=== PATIENT | female | born 1970 | race Caucasian/White ===

== ENCOUNTER 2019-07-16 09:09 | Inpatient (IN) | payer OTHER, SELFPAY ==
[2019-07-14 08:24] VITALS: BMI 40.8
[2019-07-16] VITALS (19 sets, daily range): BP systolic 125–169; BP diastolic 48–99; PULSE 90–107; RESP 8–20; TEMP 36.3–37.3; O2SAT 93–99; BMI 42.4
--- NOTE | 2019-07-16 | DI.RAD.S_ITS ---
PROCEDURE: XR LUMBAR SPINE 2-3V INDICATIONS: L5-S1 TLIF TECHNIQUE: 2 views of the lumbar spine were acquired. COMPARISON: None. FINDINGS: 2 spot fluoroscopic images demonstrating L5-S1 posterior spinal fixation with paraspinal rods and pedicle screws. There is interbody cage graft. Expected intraoperative alignment. Dictated by: Gregory Merino M.D. on 07/16/2019 at 15:33 Approved by: Gregory Merino M.D. on 07/16/2019 at 15:59
[2019-07-16] MEDS: LACTATED RINGERS 1,000 ML 42 ML IV ×2 (10:03→13:33)
--- NOTE | 2019-07-16 10:49 | PM.PREOP ---
Pre-operative Note Interval Note History & Physical reviewed/Exam performed by Physician: Yes Changes to H&P: No
[2019-07-16] MEDS: CLINDAMYCIN 900 MG/50 ML PIGGYBACK 50 MG IV ×2 (11:45→18:58)
[2019-07-16] MEDS: ACETAMINOPHEN IV 1,000 MG/100 ML VIAL 400 MG IV (12:05)
--- NOTE | 2019-07-16 12:19 | SUR.OPER ---
Prone on spine table, head in foam head support, padded chest and pelvic supports, gel pad at knees, lower legs supported by pillows; nipples, genitalia and toes free of pressure, arms secured on foam padded arm boards at <90 degrees abduction. Tape over blanket at thigh secured to table.
[2019-07-16] MEDS: THROMBIN (RECOMBINANT) 5,000 UNIT VIAL 5000 UNIT TOP (12:26)
[2019-07-16] MEDS: VANCOMYCIN 1,000 MG VIAL 1000 MG TOP (12:27)
[2019-07-16] MEDS: BUPIVACAINE 0.5% (PF) 4 ML, MORPHINE-PF 4 MG, BUTORPHANOL 1 MG, fentaNYL 100 MCG INJ (12:27)
[2019-07-16] MEDS: SODIUM CHLORIDE 0.9% 1,000 ML, GENTAMICIN 80 MG IRR (12:27)
--- NOTE | 2019-07-16 15:07 | PM.OP.1 ---
Operative Date/Time/Diagnoses Date of procedure: 07/16/19 Time of procedure: 15:07 Pre-op diagnosis: Lumbar disc herniation with radiculopathy Post-op diagnosis: same Procedure & Clinicians Procedure: L5-S1 TLIF (post/post interbody fusion) with cage L5-S1 screws Iliac crest bone graft aspirate Left L4-5 diskectomy Left L5-S1 diskectomy Use of microscope Placement of epidural catheter Same procedure as scheduled: Yes Indications: [age] year old female with intractable pain from lumbar disc herniations. They had failed conservative management and requested operative intervention. Risks and benefits of surgery were discussed and appropriate consents were obtained. Surgeon: Eugenio Edmondson Director Of Infection Prevention: Cherri Mcgee Anesthesia Type: General Operative Notes Findings: None Closure Type: primary Specimen(s): none sent Prosthetic devices, grafts, tissues, transplants, or devices: NuVasive MAS Reline screws Globus Rise cage Applied: catheter Estimated Blood Loss (mL): 20 Procedure in detail: The patient was brought to the operating room and intubated on the table. A time-out was performed. They were then rolled over to the well-padded Ambrosio table in the prone position. Preoperative antibiotics were given. The back was prepped and draped in the standard sterile fashion. Using fluoroscopy, a 4 cm longitudinal incision was made to the well-marked left of the midline. We used Bovie to come down to and split the lumbodorsal fascia. Using fluoroscopy and monitoring, we then percutaneously placed Jamshidi needles down the pedicles of L5 and S1 on the left side. These were changed out to guidewires and then we tapped and then placed the NuVasive MAS Reline screw shanks. We then opened up the retractors and used Bovie to clear up the posterolateral gutter as well as medially along the lamina to the spinous processes. A bur was used to decorticate the transverse process of L5 and the sacral ala. We brought in the microscope. Using a combination of bur and Kerrison rongeurs, a laminectomy was performed from the left side. We cleared over past the midline. We cleared out the neural foramen. This was exceedingly tight. We had to perform a complete facetectomy to be able to decompress the neural foramen and exposed the disc. Surprisingly, this disc was partially calcified. We then began the TLIF prep. We cleared out the rest of the neural foramen and finished our exposure for the interbody work. The disc was prepped with bipolar and then an annulotomy was performed. We had used an osteotome to break through the outer portion of the disc. We then removed the posterior fragments and the exiting nerve root was finally fully free. We performed a diskectomy using a combination of paddles, gabriella, pituitaries, and curettes. We distracted the disc using a paddle and locked the retractor in an open position. We then filled the disc space with Osteocel bone graft. We then placed the globus Rise cage under fluoroscopy and then filled this in with more bone graft. The distraction on the retractor was released to compress down. This completed the posterior interbody fusion portion of the TLIF at L5-S1. We then moved the retractor up a level to L4-5, still based off the L5 screw. This was opened up and we cleared out medially to expose the lamina. A left-sided hemilaminotomy was performed. We carefully pulled back the ligamentum and expose the dura. The dura and the nerve root were retracted medially until we came down to the extruded disc herniation. This was prepped with bipolar and then we used a scalpel and pituitaries to perform a diskectomy at L4-5. We could then sweep the ball probe back and forth and there was no further pressure on the nerve root. The wound was irrigated. We then placed the screw heads, leticia, and locked down the set screws. A small stab incision was made over the PSIS. We used a Jamshidi needle to aspirate several mL of bone marrow from the pelvis. This was mixed with the remaining Osteocel and combined with all of the locally harvested bone graft and placed in the posterolateral gutter for the posterior fusion of the TLIF at L5-S1. An epidural catheter was then placed in the spinal canal by carefully depressing the dura and advancing it 6 cm cephalad under the remaining lamina without resistance. The muscle fascia was closed. The catheter was then injected with a solution containing 4 mL of 0.5% Marcaine, 1 mg Stadol, 4 mg Duramorph, and 100 mcg of fentanyl. This was injected without resistance and the catheter was pulled. We then went to the opposite side. Again using fluoroscopy, a 3 cm incision was made and Bovie was used to come down to split the fascia. Using neural monitoring and fluoroscopy, Jamshidi needles were advanced down the pedicles of L5 and S1 on the right side. These were switched over guidewires, tapped, and screws placed. We then placed a leticia and locked the set screws on this side. The wound was irrigated. The fascia was closed. Vancomycin powder was placed in the wounds. The superficial and skin were closed. A sterile dressing was placed. The patient was then rolled over extubated and brought to recovery room without complications. Complications: none Post-operative Condition: stable Disposition: PACU Plan for aftercare: Inpatient. Up with therapy.
[2019-07-16] MEDS: ONDANSETRON 4 MG/2 ML INJ IV (15:30)
[2019-07-16] MEDS: HYDROMORPHONE 2 MG INJ 1 MG IV ×2 (15:30→15:38)
[2019-07-16] MEDS: hydrOXYzine 50 MG/ML INJ 25 MG IM (15:56)
--- NOTE | 2019-07-16 16:46 | SUR.PHASEI ---
Pt trasnsferred to room 220 via bed with all belongings. Last vital signs stable and pain at tolerable level; see flowsheet documentation for details. Report given to JOSE Mcleod prior to transfer. Harsha at bedside upon arrival to room 220; handoff assessment completed. JOSE Mcleod to assume care of pt at this time.
[2019-07-16] MEDS: LACTATED RINGERS 1,000 ML 125 ML IV (17:11)
[2019-07-16] MEDS: OXYCODONE IR 5 MG TABLET 10 MG PO (18:32)
[2019-07-16] MEDS: GABAPENTIN 300 MG CAPSULE PO (21:16)
[2019-07-16] MEDS: DOCUSATE 100 MG CAPSULE PO (21:16)
[2019-07-16] MEDS: SENNOSIDES 8.6 MG TABLET 17.2 MG PO (21:16)
[2019-07-16] MEDS: INSULIN GLARGINE 100 UNIT/ML 3ML PEN 40 UNIT SUBCUT (21:16)
[2019-07-16] MEDS: OXYCODONE IR 5 MG TABLET 15 MG PO (21:16)
[2019-07-17 00:35] VITALS: BP 120/54; PULSE 88; RESP 18; TEMP 36.7; O2SAT 96
[2019-07-17] MEDS: LACTATED RINGERS 1,000 ML 125 ML IV (00:44)
[2019-07-17] MEDS: HYDROMORPHONE 1 MG INJ 0.5 MG IV ×4 (00:58→06:39)
--- NOTE | 2019-07-17 02:39 | PC.NURSE ---
Addendum entered by Areli Doll R.N. 07/17/19 04:56: IV dilaudid 0.5mg given at this time. Offered logroll turn, pt stated I know I need to turn, but I'm just not up to it right now Reinforced education regarding importance of turning post op. Reassured pt that pain med preactivity available. Will con't to offer turns and stress importance/reinforce post op instructions. Original Note: Pt reports pain 3/10 when lying of right side at beginning of shift. Offered pain medication per turn, pt denied need for pain medication and pt thought she would be able to tolerate log roll turn to left side. At attempt to turn pt to left side with 2person assist. Pt vocalized pain 10/10. Attempt to turn stopped. Readdressed need for pain medication pre turn, pt agreed to premedication for turning. Repositioned to right side with pillows for support, pt unable to tolerate right side. Pt turned back to left side. Plan to offer premedication with next turn, will turn as pt pain level allows. Pt LLE with baseline (pre op) numbness, tingling. LLE color pink, strong pedal pulse, able to wiggle toes, and lift foot 1inch without resistance.
[2019-07-17] MEDS: CLINDAMYCIN 900 MG/50 ML PIGGYBACK 50 MG IV (03:23)
[2019-07-17 04:30] VITALS: BP 131/67; PULSE 97; RESP 16; TEMP 36.7; O2SAT 95
[2019-07-17] MEDS: diazePAM 5 MG TABLET PO ×4 (05:58→23:31)
[2019-07-17] MEDS: ACETAMINOPHEN 325 MG TABLET 650 MG PO ×3 (06:00→23:18)
[2019-07-17 06:26] LABS: Hematocrit 38.1 % (36-46); Hemoglobin 12.8 g/dL (12.0-16.0)
[2019-07-17] MEDS: TIZANIDINE 4 MG TABLET 6 MG PO ×3 (06:40→21:16)
[2019-07-17 08:00] VITALS: BP 137/61; PULSE 83; RESP 18; TEMP 36.4; O2SAT 96
--- NOTE | 2019-07-17 08:51 | PM.PNPO.1 ---
Subjective Subjective Date Patient Seen: 07/17/19 Time Patient Seen: 08:51 Interval history: Having significant pain across the back, 10. No more leg pain. Exam Vital Signs (past 8 hours): - 07/17/19 04:30 07/17/19 08:00 Temperature 98.1 F 97.5 F L Pulse Rate 97 H 83 Respiratory Rate 16 18 Blood Pressure 131/67 137/61 Pulse Oximetry 95 96 Oxygen Delivery Method Room Air Oxygen Flow Rate 0 Const Orientation: alert and oriented x3 Back/Spine/Pelvis Other: CDI. 5/5 motor both lower extremities except for 4/5 left AT, EHL. Objective Labs Result Diagrams: 07/17/19 05:40 Labs: Laboratory Results - last 24 hr 07/17/19 05:40 Hgb 12.8 Hct 38.1 Assessment & Plan Post-op Postoperative Procedures: Procedures Operation Date: 07/16/19 11:15 Actual Procedures Side Surgeon p L45 discectomy & L45 discectomy & instrumented fusion w/ bone graft Eugenio Edmondson MD Stable after surgery. Leg weakness about the same but no more leg pain. Plan to mobilize today with physical therapy. Anticipate her being here for the next 2-3 days. Quality VTE Deep Vein Thrombosis/Pulmonary Embolism Present on Admission: No
--- NOTE | 2019-07-17 08:57 | PM.PNPO.1 ---
Subjective Subjective Date Patient Seen: 07/17/19 Time Patient Seen: 08:57 Interval history: She is doing great. Minimal discomfort in the low back. She was nauseated overnight but now is eating breakfast. Exam Vital Signs (past 8 hours): - 07/17/19 04:30 07/17/19 08:00 Temperature 98.1 F 97.5 F L Pulse Rate 97 H 83 Respiratory Rate 16 18 Blood Pressure 131/67 137/61 Pulse Oximetry 95 96 Oxygen Delivery Method Room Air Oxygen Flow Rate 0 Const Orientation: alert and oriented x3 Back/Spine/Pelvis Other: CDI. 5/5 motor both lower extremities Objective Labs Result Diagrams: 07/17/19 05:40 Labs: Laboratory Results - last 24 hr 07/17/19 05:40 Hgb 12.8 Hct 38.1 Assessment & Plan Post-op Postoperative Procedures: Procedures Operation Date: 07/16/19 11:15 Actual Procedures Side Surgeon p L45 discectomy & L45 discectomy & instrumented fusion w/ bone graft Eugenio Edmondson MD She is doing great. Mobilize with physical therapy. Anticipate discharge probably tomorrow. Quality VTE Deep Vein Thrombosis/Pulmonary Embolism Present on Admission: No
[2019-07-17] MEDS: GABAPENTIN 300 MG CAPSULE PO ×3 (09:14→20:24)
[2019-07-17] MEDS: OXYCODONE IR 5 MG TABLET 15 MG PO ×5 (09:14→23:17)
[2019-07-17] MEDS: DOCUSATE 100 MG CAPSULE PO ×2 (09:14→20:25)
[2019-07-17] MEDS: LISINOPRIL 20 MG TABLET PO (09:14)
[2019-07-17] MEDS: buPROPion 100 MG TABLET PO ×2 (09:20→20:25)
--- NOTE | 2019-07-17 10:44 | PT.IIE ---
Current Diagnoses Intervertebral disc disorders with radiculopathy, lumbar region (07/16/19) Strain of muscle, fascia and tendon of lower back, initial encounter (07/16/19) Surgery Performed Operation Date: 07/16/19 11:15 Actual Procedures p L45 discectomy & L45 discectomy & instrumented fusion w/ bone graft - Eugenio Edmondson MD Surgical History (Last Updated 07/14/19 @ 11:02 by Afsaneh Campbell RN) History of section (Acute ~1996) History of partial hysterectomy (Acute ~1998) History of surgery (Acute ~2005) Status post epidural steroid injection (Acute) Medical History (Last Updated 07/14/19 @ 11:58 by Afsaneh Campbell RN) Asthma (Acute) Constipation (Acute) Depression (Acute) Diabetes (Acute) Herniated nucleus pulposus, L4-5 left (Acute) HTN (hypertension) (Acute) Hx of migraine headaches (Acute) Lumbar foraminal stenosis (Acute) Lumbar radiculopathy (Acute) Physical Therapy Inpatient Evaluation/Re-Eval M1 PT/OT-IP Prior Functional Status Start: 07/17/19 14:21 Freq: NEEDED Status: Active Protocol: Document 07/17/19 10:44 AB (Rec: 07/17/19 14:43 AB [id number]) Medical Review Prior Functional Status Medical History Reviewed Yes Diet/Fluid Consistency Regular Communication able to make needs known Mobility and Gait pt stated that she is independent with all mobilities and ambulation using a quad cane Social History Household Members spouse Living Arrangements House Number of Floors (Floors) One Floor Number of Stairs To Enter/Railing? 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 PT-IP Current Condition Start: 07/17/19 14:21 Freq: NEEDED Status: Active Protocol: Document 07/17/19 10:44 AB (Rec: 07/17/19 14:43 AB [id number]) Physical Therapy Current Condition Current Condition Evaluation Date 10/19/19 Treatment Diagnosis s/p L5S1 TLIF; L4-5 discectomy ; difficulty in walking Onset Date 07/16/19 Precautions Lumbar Precautions Log Roll,No Twisting,Limit Bending,Lifting Restriction of 10 lbs,Gait Belt above Incisional Area M3 PT-IP Subjective Start: 07/17/19 14:21 Freq: NEEDED Status: Active Protocol: Document 07/17/19 10:44 AB (Rec: 07/17/19 14:43 AB [id number]) Subjective Physical Therapy Visit Type Type Initial Evaluation Visit Start Time 10:44 Visit Stop Time 10:54 Total Visit Minutes 10 Number of VENEER DRIER FEEDER Visits 0 Physical Therapy Visit Comments Patient Comments pt agreeable to do PT Therapy Pain Assessment Pain When Pain Assessed At Rest Pain Present Pain Present Pain Reported Location Low back, lt hip and leg Scale Used increases with mobiltiy Pain Behaviors Calling Out,Crying Pain Management Techniques Apply Cold,Modification of Treatment,Re-positioning, Timing of Activity with Medications M4 PT-IP Mobility and Gait Start: 07/17/19 14:21 Freq: NEEDED Status: Active Protocol: Document 07/17/19 10:44 AB (Rec: 07/17/19 14:43 AB [id number]) PT-Bed Mobility Assessment Sit to Supine Sit to Supine Maximum Assistance,2 Person Assistance Scooting Scooting to Edge of Bed Maximum Assistance Scooting Up and Down in Bed Maximum Assistance PT-Transfer Assessment Sit to and From Stand Sit to and from Stand Maximum Assistance,2 Person Assistance,Use of Upper Extremities Equipment Transfer Assistive Device Gait Belt,Front Wheeled Walker Orthotic/Prosthetic Devices or Brace: No Transfers Transfer Destination Bed Transfer Technique Stand Step Pivot Transfer Ability Level of Assist Moderate Assistance,Maximum Assistance,1 Person Assistance ,Use of Upper Extremities Comments Mobility Comments attempted sit to stand from the chair and required 2 attempts and unable despite max A provided. completed again with max A x 2 and max cues. pt c/o increase pain. screaming with pain and crying . instructed to take deep breaths. attempted to ambulate and only was able to take steps towards the bed ~ 5 ft mod to max A and cues. required max A for controlled descent to the bed. pt stated that she cannot tolerate lying on her back and prefers to be on her back. pt completed sit to side lying max A x 2 and max cues. positioned in bed. call light and table placed within reach . left pt with spouse in room. Gait Assessment Gait Gait Assistance Required: Moderate Assistance,Maximum Assistance Distance (Feet) 5 Able to Maintain Weight Bearing Status Yes During Gait Assistive Devices Assistive Device Gait Belt,Front Wheeled Walker Orthotic/Prosthetic Devices or Brace: No Gait Deviations General Gait Pattern Antalgic,Decreased Stride Length,Decreased Feet Clearance Factors Limiting Gait Function Factors Limiting Gait Function Decreased Activity Tolerance, Decreased Strength,Pain,Poor Balance Comments Gait Comments pls refer to mobility section for details PT-Balance Assessment Sitting Balance and Reactions Static Sitting Balance Ability Good Dynamic Sitting Balance Ability Good Standing Balance and Reactions Static Standing Balance Ability Fair Dynamic Standing Balance Ability Poor Device Used FWW M5 PT-IP Objective Assessments Start: 07/17/19 14:21 Freq: NEEDED Status: Active Protocol: Document 07/17/19 10:44 AB (Rec: 07/17/19 14:43 AB [id number]) Orientation Orientation/Cognition Level of Alertness Alert Orientation Name,Age,Birthday,Place, Situation Language Function Ability No Deficits Noted Safety Awareness Understands Safety Issues Memory Description No Deficits Noted Gross Range of Motion Lower Extremity ROM Assessment Within Functional Limits Strength Lower Extremity Strength Assessment Bilaterally Impaired Hip 3+/5 Knee 4-/5 Coordination Assessment Gross Coordination Gross Coordination WNL Sensation Assessment Sensation Gross Sensation Left LE Impaired Sensation Description Numbness,Tingling Muscle Tone Muscle Tone WNL Yes M6 PT-IP Treatment Start: 07/17/19 14:21 Freq: NEEDED Status: Active Protocol: Document 07/17/19 10:44 AB (Rec: 07/17/19 14:43 AB [id number]) Physical Therapy Treatment Education Education Provided Precautions,Post-Op Packet, Safety M7 PT-IP Assessment and Plan Start: 07/17/19 14:21 Freq: NEEDED Status: Active Protocol: Document 07/17/19 10:44 AB (Rec: 07/17/19 14:43 AB [id number]) PT Summary Assessment and Plan Potential Rehabilitation Potential Good Status of Condition at Evaluation Evolving Summary Impairments Pain,ROM,Strength,Balance, Coordination,Sensation,Tone, Cognition,Bed Mobility, Transfers,Gait,Activity Tolerance Assessment Summary pt requiring max A x2 and max cues. unable to tolerate much activity due to pain. d/c plan depending on progress. will continue to monitor but at this time pt may need SNF rehab. Goals Bed Mobility Goal Standby Assistance Transfer Goal Standby Assistance,Front Wheeled Walker Gait Goal Standby Assistance,Front Wheel Walker Gait Distance 200 Other Goals up/down 12 step with 1 rail CGA Days to Meet Goals 10 Frequency of Treatment Frequency Of Treatment Twice a Day Treatment Plan Physical Therapy Treatment Plan Bed Mobility Training,Transfer Training,Gait Training, Therapeutic Exercise,Balance Retraining,Post Op Education, Discharge Planning,Hot or Cold Pack,Neuromuscular Re-ed, Coordination Retraining,Manual Therapy Recommendations To Nursing Amount of Assist Needed 2 Person Assist Discharge Recommendations PT Discharge Recommendations Home with 21/04 Assist,Home Health,SNF Rehab
--- NOTE | 2019-07-17 10:53 | PC.NURSE ---
Addendum entered by Elina Jay R.N. 07/17/19 14:05: Pt yelling and crying in pain, refusing to move on her back to lay on her r.side. Given Valium and new Aubree bed put into patients room. She is now doing better. Pt having difficulty with PT. She does feel better when sitting at side of bed and standing and would like to do this again tonight. Will pass on to karin michael RN. Original Note: Pts pain 5/10. Given 15mg of oxycodone and somewhat helpful. Pt working with physical therapy and was standing with gait belt a few minutes ago when giving pt her tizanadine. Dressing to lower back is cdi, Pt is having difficulty moving side to side. She is favoring her back quite a bit. Explained to pt that she is going to have pain, but pain medication will help decrease discomfort. at bedside. Patient ate some bites at breakfast.
--- NOTE | 2019-07-17 11:15 | OT.IP.EVAL ---
Current Diagnoses Intervertebral disc disorders with radiculopathy, lumbar region (07/16/19) Strain of muscle, fascia and tendon of lower back, initial encounter (07/16/19) Surgery Performed Operation Date: 07/16/19 11:15 Actual Procedures p L45 discectomy & L45 discectomy & instrumented fusion w/ bone graft - Eugenio Edmondson MD Past Medical History (Last Updated 07/14/19 @ 11:58 by Afsaneh Campbell RN) Asthma (Acute) Constipation (Acute) Depression (Acute) Diabetes (Acute) Herniated nucleus pulposus, L4-5 left (Acute) HTN (hypertension) (Acute) Hx of migraine headaches (Acute) Lumbar foraminal stenosis (Acute) Lumbar radiculopathy (Acute) Surgical History (Last Updated 07/14/19 @ 11:02 by Afsaneh Campbell RN) History of section (Acute ~1996) History of partial hysterectomy (Acute ~1998) History of surgery (Acute ~2005) Status post epidural steroid injection (Acute) Occupational Therapy Inpatient Evaluation/Re-Eval M1 PT/OT-IP Prior Functional Status Start: 07/17/19 14:21 Freq: NEEDED Status: Active Protocol: Document 07/17/19 16:10 CGR (Rec: 07/17/19 16:35 CGR [email or web address]) Medical Review Prior Functional Status Medical History Reviewed Yes Diet/Fluid Consistency Regular Communication able to make needs known Mobility and Gait pt stated that she is independent with all mobilities and ambulation using a quad cane Activities of Daily Living and IADL's Pt was IND in most ADLs but needed assist with socks and shoes. Pt's assists with cooking as needed. Social History Household Members spouse Living Arrangements House Number of Floors (Floors) One Floor Number of Stairs To Enter/Railing? 10 steps to enter with B railings Home Environment High Toilet,Tub/Shower Home Equipment Quad Cane,Shower Seat without Backrest,Hand Held Shower,Grab Bars In Shower Employment Status Unemployed Additional Social History Comment Pt is not currently working M2 OT-IP Current Condition Start: 07/17/19 16:10 Freq: Status: Active Protocol: Document 07/17/19 16:10 CGR (Rec: 07/17/19 16:35 CGR [email or web address]) Occupational Therapy Current Condition Current Condition Evaluation Date 07/17/19 Treatment Diagnosis L4-5 deisectomy and fusion. Diagnosis Onset Date 07/16/19 Post Operative Precautions Lumbar Precautions Log Roll,No Twisting,Limit Bending,Lifting Restriction of 10 lbs,Gait Belt above Incisional Area M3 OT- IP Subjective and Pain Start: 07/17/19 16:10 Freq: Status: Active Protocol: Document 07/17/19 16:10 CGR (Rec: 07/17/19 16:35 CGR [email or web address]) OT- Subjective Occupational Therapy Visit Type Type Initial Evaluation Visit Start Time 09:50 Visit Stop Time 11:15 Total Visit Minutes 85 Occupational Therapy Visit Comments Patient Comments I will probably yell. OT Pain Assessment Pain When Pain Assessed At Rest Pain Present Pain Present Pain Reported Location Low back, lt hip and leg Intensity 4 Scale Used Numeric (1 - 10) Management Techniques Distraction,Re-positioning M4 OT- IP ADL's Start: 07/17/19 16:10 Freq: Status: Active Protocol: Document 07/17/19 16:10 CGR (Rec: 07/17/19 16:35 CGR [email or web address]) OT FSH-Vtev-Mundttw General Evaluation Self-Feeding Ability Independent OT ADL-Grooming General Evaluation Grooming Ability Standby Assistance Areas Needing Assistance Retrieving/Set-up of Grooming Items,Face Washing Comments OT Grooming Comments seated in chair at sink OT ADL-Oral Care General Eval Oral Care Ability Standby Assistance Areas of Assistance Brushing Teeth Comments Oral Care Comments seated in chair at sink OT ADL-Dressing Comments OT Dressing Comments Pt states she knows how to use a sock aide. Educated pt on use of the cell operation supervisor for donning LB dressing. OT ADL-Toileting Comments OT Toileting Comments Pt with kiera duarte need for BM OT ADL-Bathing Comments OT Bathing Comments Not performed on this date. M5 OT- IP IADL's Start: 07/17/19 16:10 Freq: Status: Active Protocol: Document 07/17/19 16:10 CGR (Rec: 07/17/19 16:35 CGR [email or web address]) OT-Instrumental Activities of Daily Living Deficits IADL Deficits Identified Deficits Home Safety Awareness Awareness of Need for Assistance at Home Good Awareness Ability to Problem Solve Emergency Able to Problem Solve Situations Home Safety Comments Pt appears to have a supportive hsuband who will help her upon discharge. plans to be home for 10-17 days to help. 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 M6 OT- IP Functional Cognition Start: 07/17/19 16:10 Freq: Status: Active Protocol: Document 07/17/19 16:10 CGR (Rec: 07/17/19 16:35 CGR [email or web address]) Cognitive Factors Limiting Selfcare Function Cognitive Ability Level of Alertness Alert Patient Orientation Name,Age,Birthday,Month,Date, Year,Day of Week,Place, Situation Attention Span Ability Capable of Focused Attention, Capable of Sustained Attention Ability to Follow Commands Able to Follow One Step Commands,Able to Follow Multi- Step Commands Memory Description No Deficits Noted Safety Awareness No Deficits Noted Problem Solving Ability No deficits Noted Executive Function Ability No Deficits Noted Abstract Thinking Ability No Deficits Noted OT- Vision and Hearing OT- Hearing Assessment OT- Hearing Assessment WFL OT- Vision Assessment Visual Acuity WFL,Glasses For Reading Visual Attentiveness WFL Occular Pursuits WFL Visual Convergence WFL Visual Pagan WFL M7 OT- IP Mobility and Balance Start: 07/17/19 16:10 Freq: Status: Active Protocol: Document 07/17/19 16:10 CGR (Rec: 07/17/19 16:35 CGR [email or web address]) OT- Bed Mobility Assessment Supine to Sit Supine to Sit Assist Minimal Assistance Scooting Scooting to Edge of Bed Moderate Assistance OT-Transfer Assessment Sit to and From Stand Sit to and from Stand Minimal Assistance Transfers Transfer Ability Minimal Assistance Technique Transfer Destination Bed,Chair Transfer Technique Stand Step Pivot Devices Transfer Assistive Devices Gait Belt,Front Wheeled Walker Comments Mobility Comments Pt needed help with scooting to the edge of the bed and to the edge of the chair but was able to scoot back in the chair and transfer with ~5 steps to the chair with min a. Per P.T., pt had significant decline in ability with increased pain later in the AM . OT- Balance Assessment Sitting Balance and Reactions Static Sitting Balance Ability Good Dynamic Sitting Balance Ability Fair M8 OT- IP Objective Assessments Start: 07/17/19 16:10 Freq: Status: Active Protocol: Document 07/17/19 16:10 CGR (Rec: 07/17/19 16:35 CGR [email or web address]) OT Gross Range of Motion Upper Extremity Range of Motion Assessment Within Functional Limits OT Strength Upper Extremity Strength Assessment Within Functional Limits Comments Strength Comments grossly 4/5 throguhout OT- Coordination Assessment Upper Extremity Finger to Nose Test Within Functional Limits Finger Tapping Test Within Functional Limits OT-Muscle Tone Assessment Muscle Tone WNL Yes OT Sensation Assessment Edema Edema Absent M9 OT- IP Assessment and Plan Start: 07/17/19 16:10 Freq: Status: Active Protocol: Document 07/17/19 16:10 CGR (Rec: 07/17/19 16:35 CGR [email or web address]) OT Summary Assessment and Plan Potential Rehabilitation Potential Good Analytic Complexity at Evaluation Low Summary OT Impairments Pain,Balance,Functional Cognition,Functional Mobility, Grooming,Dressing,Toileting, Bathing,Toilet Transfers, Shower Transfers Progress Towards Goals Progressing Toward Goals Assessment Summary Pt presents as a low complexity evaluation. Pt performed well with joyce for most mobility and mod a for scooting but per P.T. had significant difficulty with returning to bed later in the AM d/t increased pain. Pt will continue to benefit from OT services. Recommendation to d/ c home based off this assessment. If pt continues to have significant difficulty with increased pain she may need SNF. Goals Grooming Goal Independent Dressing Goal Independent Toileting Goal Independent Bathing Goal Independent Toilet Transfer Goal Independent Shower Transfer Goal Independent Frequency of Treatment Frequency Of Treatment Once a Day Treatment Plan OT Treatment Plan ADL Training,Functional Mobility,Patient/Family Education,Discharge Planning Discharge Recommendations OT Discharge Recommendations Home with Assistance Home Equipment Needs walker
[2019-07-17 12:00] VITALS: BP 128/66; PULSE 83; RESP 18; TEMP 36.6; O2SAT 99
--- NOTE | 2019-07-17 13:35 | PT.IPTN ---
Current Diagnoses Intervertebral disc disorders with radiculopathy, lumbar region (07/16/19) Strain of muscle, fascia and tendon of lower back, initial encounter (07/16/19) Surgery Performed Operation Date: 07/16/19 11:15 Actual Procedures p L45 discectomy & L45 discectomy & instrumented fusion w/ bone graft - Eugenio Edmondson MD Physical Therapy Treatment Note M2 PT-IP Current Condition Start: 07/17/19 14:21 Freq: NEEDED Status: Active Protocol: Document 07/17/19 10:44 AB (Rec: 07/17/19 14:43 AB [id number]) Physical Therapy Current Condition Current Condition Evaluation Date 07/17/19 Treatment Diagnosis s/p L5S1 TLIF; L4-5 discectomy ; difficulty in walking Onset Date 07/16/19 Precautions Lumbar Precautions Log Roll,No Twisting,Limit Bending,Lifting Restriction of 10 lbs,Gait Belt above Incisional Area M3 PT-IP Subjective Start: 07/17/19 14:21 Freq: NEEDED Status: Active Protocol: Document 07/17/19 13:35 AB (Rec: 07/17/19 14:56 AB [id number]) Subjective Physical Therapy Visit Type Type Treatment Note Visit Start Time 13:35 Visit Stop Time 14:03 Total Visit Minutes 28 Number of FURNITURE REPAIR TECHNICIAN Visits 0 Physical Therapy Visit Comments Patient Comments requested to lay down on her other side Therapy Pain Assessment Pain When Pain Assessed At Rest Pain Present Pain Present Pain Reported Location Low back, lt hip and leg Scale Used increase pain with mobiltiy Pain Behaviors Calling Out,Crying Pain Management Techniques Re-positioning,Timing of Activity with Medications M4 PT-IP Mobility and Gait Start: 07/17/19 14:21 Freq: NEEDED Status: Active Protocol: Document 07/17/19 13:35 AB (Rec: 07/17/19 14:56 AB [id number]) PT-Bed Mobility Assessment Supine to Sit Supine to Sit Moderate Assistance Sit to Supine Sit to Supine Maximum Assistance,1 Person Assistance,2 Person Assistance Scooting Scooting to Edge of Bed Maximum Assistance PT-Transfer Assessment Sit to and From Stand Sit to and from Stand Maximum Assistance,2 Person Assistance,Use of Upper Extremities Equipment Transfer Assistive Device Gait Belt,Front Wheeled Walker Orthotic/Prosthetic Devices or Brace: No Transfers Transfer Destination Bed,Chair Transfer Technique Stand Step Pivot Transfer Ability Level of Assist Moderate Assistance,Maximum Assistance,1 Person Assistance ,Use of Upper Extremities Comments Mobility Comments nurse asked for assistance to change pt's position in bed. pt laying on her L side and wants to lay down on her R. attempted log roll and side turn to the R but pt stated that she cannot lie down on her back but agreed to try. attempted log rolling to her back and pt screaming with pain and crying. unable to complete the rolling. assisted pt to sit on EOB mod A and cues. pt was able to sit on EOB SBA. completed sit to stand max A and cues and took ~ 5 steps to transfer on to the chair using FWW mod to max A and cues. required max assist for controlled descent to the chair. informed nurse regarding bed change and agreed. nurse was able to obtain another bed for pt. position pt next to R side of the bed. completed sit to stand from the chair mod A x 2 and max cues. stand step pivot using FWW mod to max A and cues to the bed. completed sit to supine max A x 2 and max cues. positioned pt on the bed. call light and table placed within reach. Gait Assessment Gait Gait Assistance Required: Moderate Assistance,Maximum Assistance,1 Person Assist Distance (Feet) 2 Assistive Devices Assistive Device Gait Belt,Front Wheeled Walker Orthotic/Prosthetic Devices or Brace: No Gait Deviations General Gait Pattern Antalgic,Decreased Stride Length,Decreased Feet Clearance,Step-to Gait Factors Limiting Gait Function Factors Limiting Gait Function Decreased Activity Tolerance, Decreased Sensation,Decreased Strength,Limited Range of Motion,Pain,Poor Balance Comments Gait Comments able to take steps during transfers M5 PT-IP Objective Assessments Start: 07/17/19 14:21 Freq: NEEDED Status: Active Protocol: Document 07/17/19 10:44 AB (Rec: 07/17/19 14:43 AB [id number]) Orientation Orientation/Cognition Level of Alertness Alert Orientation Name,Age,Birthday,Place, Situation Language Function Ability No Deficits Noted Safety Awareness Understands Safety Issues Memory Description No Deficits Noted Gross Range of Motion Lower Extremity ROM Assessment Within Functional Limits Strength Lower Extremity Strength Assessment Bilaterally Impaired Hip 3+/5 Knee 4-/5 Coordination Assessment Gross Coordination Gross Coordination WNL Sensation Assessment Sensation Gross Sensation Left LE Impaired Sensation Description Numbness,Tingling Muscle Tone Muscle Tone WNL Yes M6 PT-IP Treatment Start: 07/17/19 14:21 Freq: NEEDED Status: Active Protocol: Document 07/17/19 13:35 AB (Rec: 07/17/19 14:56 AB [id number]) Physical Therapy Treatment Education Education Provided Precautions,Safety M7 PT-IP Assessment and Plan Start: 07/17/19 14:21 Freq: NEEDED Status: Active Protocol: Document 07/17/19 13:35 AB (Rec: 07/17/19 14:56 AB [id number]) PT Summary Assessment and Plan Potential Rehabilitation Potential Fair Summary Impairments Pain,ROM,Strength,Balance, Coordination,Sensation,Tone, Cognition,Bed Mobility, Transfers,Gait,Activity Tolerance Progress Towards Goals Slow Progress due to Pain Assessment Summary pt with c/o increase pain during mobility and unable to tolerate much activity. pt currently requiring 2 person assist and will need SNF rehab at this time. will continue to assess progress. Goals Bed Mobility Goal Standby Assistance Transfer Goal Standby Assistance,Front Wheeled Walker Gait Goal Standby Assistance,Front Wheel Walker Gait Distance 200 Other Goals up/down 12 step with 1 rail CGA Days to Meet Goals 10 Frequency of Treatment Frequency Of Treatment Twice a Day Treatment Plan Physical Therapy Treatment Plan Bed Mobility Training,Transfer Training,Gait Training, Therapeutic Exercise,Balance Retraining,Post Op Education, Discharge Planning,Hot or Cold Pack,Neuromuscular Re-ed, Coordination Retraining,Manual Therapy Recommendations To Nursing Amount of Assist Needed 2 Person Assist Discharge Recommendations PT Discharge Recommendations Home with 21/04 Assist,Home Health,SNF Rehab
--- NOTE | 2019-07-17 14:45 | CM.DANOTE ---
Patient is a 48 year old female who was admitted on 07/16/19 for Back Surgery. Pt has TRAN for insurance and her PCP is Dr. Penny Asif. EMR was reviewed. Per Ortho MD, pt seemed to tolerate procedure well and likely will need another 2-3 days. Per PT, pt currently 2PA with lots of pain and not currently able to tolerate much but PT hopeful that pt will progress enough here to be able to d/c home as she is fairly young and pt would like to avoid SNF if possible. SW met bedside with pt and explained role and pt clearly uncomfortable and recently given pain medication and having difficulty staying awake but able to confirm that she lives in [place] with her and pt works and is independent with ADL's at baseline. Pt denies any hx of HH or SNF and states that her has 9 days off work and available for assist but pt has been wondering about possible HH to help with therapy and showers once he is back at work. SW briefly discussed HH services and frequency and typically only 1-2 days a week and pt acknowledges understanding and feels HH likely needed at d/c pending her progress. Pt's spouse had to go back home to take care of their pets but plans to be bedside again later. Plan: SW to follow closely to see how pt progresses with PT/OT to determine if she will be safe for d/c home and if HH needed. WOODROW Nichols Discharge Planning/Care Management CM Discharge Assessment Start: 07/17/19 14:43 Freq: Status: Active Protocol: Document 07/17/19 14:43 BF (Rec: 07/17/19 14:45 BF [id number]) Discharge Planning Assessment Assigned Die Designer WOODROW Moreno Advance Directives? Yes History Provided By Patient,Medical Record Has Patient been admitted in last 30 No days? Prior Living Arrangements House Household Members spouse Type of transporation used prior to Drives own vehicle admit Independent with ADL's Yes Is patient alert and oriented? Yes Patient/Family Preference Home with Home Health Comment Pending pt's progress with PT Barriers to Discharge No Discharge Plan Home Community Services Physical Therapy Transportation Arrangement Spouse off work the next 9 days and can provide transport Additional Comment Waiting for further PT to determine d/c needs Whiteboard Updated in Patient Room with Yes name and ext. # of Die Designer Review Status In Process Please Provide Date Initial DC 07/17/19 Assessment Was Performed Next Review Type Continued Stay Review Pre-Anesthesia Assessment Start: 07/14/19 08:24 Freq: Status: Complete Protocol: Document 07/14/19 08:24 CAB (Rec: 07/14/19 08:40 CAB [id number]) Pre-Anesthesia Assessment Patient Information Reviewed Via Chart Review Diagnostic Results BMP/CMP,CBC,EKG,Urinalysis Comment Outside labs/EKG scanned to record Seen Specialist in Last 12 Months Yes Specialist Seen Orthopedist,Other Comment Pain Management Primary Language Danish Machine Heel Builder Required No Height 167.64 cm Weight 114.759 kg Body Mass Index (BMI) 40.8 Barriers to Learning None Anesthesia Review Requested No alcohol intake never Smoking Status Former smoker Tobacco type cigarettes how long ago did patient quit smoking Quit age 36, smoked on & off x 15 years Substance Use Type does not use Pain Present Pain Reported Musculoskeletal Symptoms Abnormal Gait,Back Pain, Difficulty Walking,Joint Swelling,Numbness,Radiating Pain into Limb History of Falling (Recent or History of Yes ) Patient is completely paralyzed or No completely immobile Prosthesis or Orthotic Device Cane Mental Status Oriented to own ability Is patient on oxygen? No Does patient have JEAN BAPTISTE/SOB No Hx Sleep Apnea No Currently Taking a Beta Rajwinder No Can You Climb a Flight of Stairs Without No SOB Hx Chest Pain No Hx SOB No Hx Syncope or Dizziness Yes Anti-Coagulant Therapy No Has a Disc Ruler Operator No Cardiac Testing No Hx Pacemaker/ICD No Pacemaker Rep Required? No Cardiac Clearance Received Not Applicable Urinary Catheter Present No Hx Urinary Self Catheterization No Diabetes Yes HgbA1C 8.3 Date 07/08/19 Patient No Lactating No Marital Status Lives With spouse Patient Discharge Plan Description Return Home
[2019-07-17] MEDS: hydrOXYzine pamoate 25 MG CAPSULE PO ×2 (16:30→21:16)
[2019-07-17 16:31] VITALS: BP 135/67; PULSE 93; RESP 17; TEMP 37; O2SAT 100
[2019-07-17] MEDS: SENNOSIDES 8.6 MG TABLET 17.2 MG PO (20:23)
[2019-07-17] MEDS: INSULIN GLARGINE 100 UNIT/ML 3ML PEN 40 UNIT SUBCUT (20:25)
[2019-07-17 20:35] VITALS: BP 144/65; PULSE 92; RESP 18; TEMP 37.4; O2SAT 99
[2019-07-18] VITALS (8 sets, daily range): BP systolic 85–148; BP diastolic 46–76; PULSE 87–113; RESP 16–22; TEMP 36.6–38.2; O2SAT 95–100
--- NOTE | 2019-07-18 00:37 | PC.NURSE ---
shift summary- Pt rates pain 8-9/10 throughout shift, @ end of shift up in chair, yelling out, crying, cursing. 2+PA FWW gait belt back to bed. Earlier pt refuses to turn to left side or on back, spent sll of shift on right side, until up to chair. Ice pack leaked which is why up to chair, changed bed and gown. Pt started screaming at this point and took 35min to put in bed. Island drsg to low back CDI, RFA SL, Walker in place and draining clear yellow urine. 99-100% RA, LSA clear, pt tachy x2 with HR 93-92. Call light in reach.
[2019-07-18] MEDS: SODIUM CHLORIDE 0.9% 1,000 ML 1000 ML IV (00:54)
--- NOTE | 2019-07-18 00:58 | PC.NURSE ---
Addendum entered by Areli Doll R.N. 07/18/19 06:33: Pt cursing at staff when offering position changes and pain/spasm medication. Pt stated call light was not in reach. Call light at pt side, and in reach. Pt stated she would like to talk to management. Will contact coding team lead. Pt offered assistance throughout night. Pain medication given per order. Monitored for safety. Pt remained safe overnight. Addendum entered by Areli Doll R.N. 07/18/19 02:38: Pt took bilat foot SCDs off. I can't keep them on. Reinforced education regarding risk for blood clots post op and purpose of SCDs. Pt stated I'm too hot. RN removed sheet and offered ice pack. Pt declined and con't to refuse SCDs. Will offer reapplication of SCDs. Addendum entered by Areli Doll R.N. 07/18/19 02:13: IVF bolus completed. BP 117/57, MAP 80, HR 96. Pt reporting pain 8/10, moaning out loudly. Balancing effective pain control while managing hypotension. Original Note: Pt hypotensive at 0000. RN rechecked BP in both arms at 0026, BP 85/46, MAP [address] Saul notified. New order for NS 1liter over one hour x 1 now. Will recheck BP at completion of bolus. Pt sleeping, easily arousable. RR 18 o2 sat 95% on rom air. Stated pain 10/10 at 2330 with legs spasms. Oxycodone 15mg given at that time and medication for spasms. Will monitor for response to IVF bolus.
[2019-07-18] MEDS: SODIUM CHLORIDE 0.9% FLUSH 10 ML IV ×3 (02:04→20:43)
[2019-07-18] MEDS: OXYCODONE IR 5 MG TABLET 15 MG PO ×3 (02:18→10:41)
[2019-07-18] MEDS: hydrOXYzine pamoate 25 MG CAPSULE PO ×2 (04:13→19:43)
[2019-07-18] MEDS: ACETAMINOPHEN 325 MG TABLET 650 MG PO ×2 (05:38→17:31)
[2019-07-18] MEDS: diazePAM 5 MG TABLET PO ×3 (06:30→19:42)
--- NOTE | 2019-07-18 06:42 | PC.NURSE ---
SLP TEACHER note: Areli GARCIA asked me to help turn patient. Patient didn't want to turn on her back to get on her right side. Patient wanted to stand up. Patient didn't want her (Areli) to help. Patient told me to lift her head with the bed. I did as I was told. It's too high! she yelled. I lowered the head of the bed. Patient waited for 3 minutes. Staff stood at bedside patiently waiting for instruction. After a few minutes I asked what can I do to help her feel better? Patient said Fucking kill me. I let a beat pass and told her well we can't do that. How can I help get you in a better position? Patient let minutes pass. Just go. Since all I do is cuss at you people. Let me go. Patient reached for her phone, handed her- her cell phone. Asked patient if she wanted the big bright light on or off. Patient didn't respond. Turned off the big bright light. Bed rails up for patient safety, bed alarm on, door open a crack for safety. Alerted JOSE Singleton about the event.
--- NOTE | 2019-07-18 09:11 | PM.PNPO.1 ---
Subjective Subjective Date Patient Seen: 07/18/19 Time Patient Seen: 09:11 Interval history: Rough night with pain control. The oxycodone just does not seem to be working well enough for her. All back pain, no leg symptoms. Exam Vital Signs (past 8 hours): - 07/18/19 03:13 Temperature 100.2 F H Pulse Rate 98 H Respiratory Rate 16 Blood Pressure 116/63 Oxygen Delivery Method Room Air Oxygen Flow Rate 0 Const Orientation: alert and oriented x3 Back/Spine/Pelvis Other: CDI. 5/5 motor both lower extremities except for 4/5 left AT/EHL, improved compared to yesterday and preop Objective Labs Result Diagrams: 07/17/19 05:40 Assessment & Plan Post-op Postoperative Procedures: Procedures Operation Date: 07/16/19 11:15 Actual Procedures Side Surgeon p L45 discectomy & L45 discectomy & instrumented fusion w/ bone graft Eugenio Edmondson MD Of issues with pain control. We are going to try changing her medications. Continue to mobilize today. Anticipate discharge tomorrow. Quality VTE Deep Vein Thrombosis/Pulmonary Embolism Present on Admission: No
[2019-07-18] MEDS: DOCUSATE 100 MG CAPSULE PO ×2 (09:40→20:41)
[2019-07-18] MEDS: HYDROMORPHONE 2 MG TABLET 4 MG PO (09:40)
[2019-07-18] MEDS: buPROPion 100 MG TABLET PO (09:42)
--- NOTE | 2019-07-18 11:20 | PT.IPTN ---
Current Diagnoses Intervertebral disc disorders with radiculopathy, lumbar region (07/16/19) Strain of muscle, fascia and tendon of lower back, initial encounter (07/16/19) Surgery Performed Operation Date: 07/16/19 11:15 Actual Procedures p L45 discectomy & L45 discectomy & instrumented fusion w/ bone graft - Eugenio Edmondson MD Physical Therapy Treatment Note M2 PT-IP Current Condition Start: 07/17/19 14:21 Freq: NEEDED Status: Active Protocol: Document 07/17/19 10:44 AB (Rec: 07/17/19 14:43 AB [id number]) Physical Therapy Current Condition Current Condition Evaluation Date 07/17/19 Treatment Diagnosis s/p L5S1 TLIF; L4-5 discectomy ; difficulty in walking Onset Date 07/16/19 Precautions Lumbar Precautions Log Roll,No Twisting,Limit Bending,Lifting Restriction of 10 lbs,Gait Belt above Incisional Area M3 PT-IP Subjective Start: 07/17/19 14:21 Freq: NEEDED Status: Active Protocol: Document 07/18/19 11:02 CLB (Rec: 07/18/19 13:12 CLB [id number]) Subjective Physical Therapy Visit Type Type Treatment Note Visit Start Time 11:02 Visit Stop Time 11:20 Total Visit Minutes 18 Notes PRACTICAL MINISTRIES PROFESSOR requesting assist to get pt to bed. Number of DOULA Visits 1 Physical Therapy Visit Comments Patient Comments Pt wanting to get into bed to lay on left side. Therapy Pain Assessment Pain When Pain Assessed At Rest Pain Present Pain Present Pain Reported M4 PT-IP Mobility and Gait Start: 07/17/19 14:21 Freq: NEEDED Status: Active Protocol: Document 07/18/19 11:02 CLB (Rec: 07/18/19 13:12 CLB [id number]) PT-Transfer Assessment Transfer Ability Level of Assist Total Assistance Comments Mobility Comments Pt was unable to stand with two person assist stating the pain was too bad and she said she was too tired and just wanted to sleep. Pt was transferred to bed with overhead lift. Gait Assessment Comments Gait Comments unable M5 PT-IP Objective Assessments Start: 07/17/19 14:21 Freq: NEEDED Status: Active Protocol: Document 07/17/19 10:44 AB (Rec: 07/17/19 14:43 AB [id number]) Orientation Orientation/Cognition Level of Alertness Alert Orientation Name,Age,Birthday,Place, Situation Language Function Ability No Deficits Noted Safety Awareness Understands Safety Issues Memory Description No Deficits Noted Gross Range of Motion Lower Extremity ROM Assessment Within Functional Limits Strength Lower Extremity Strength Assessment Bilaterally Impaired Hip 3+/5 Knee 4-/5 Coordination Assessment Gross Coordination Gross Coordination WNL Sensation Assessment Sensation Gross Sensation Left LE Impaired Sensation Description Numbness,Tingling Muscle Tone Muscle Tone WNL Yes M6 PT-IP Treatment Start: 07/17/19 14:21 Freq: NEEDED Status: Active Protocol: Document 07/17/19 13:35 AB (Rec: 07/17/19 14:56 AB [id number]) Physical Therapy Treatment Education Education Provided Precautions,Safety M7 PT-IP Assessment and Plan Start: 07/17/19 14:21 Freq: NEEDED Status: Active Protocol: Document 07/18/19 11:02 CLB (Rec: 07/18/19 13:12 CLB [id number]) PT Summary Assessment and Plan Summary Progress Towards Goals Slow Progress due to Pain Assessment Summary Pt with increased pain unable to stand due to pain and fatigue pt was transferred to bed with overhead lift. Pt screamed in pain during tx and once pt was placed onto the bed pt was unable to tolerate laying in supine to attempt to get pt on left side. Pt remained in bed with HOB elevated, pt was c/o cramps in left and right thigh as well as burning from catheter. Left pt in bed with HOB elevated, alarm on and call light within reach. Pt present. PRACTICAL MINISTRIES PROFESSOR to inform RN of pt pain and discomfort. Goals Bed Mobility Goal Standby Assistance Transfer Goal Standby Assistance,Front Wheeled Walker Gait Goal Standby Assistance,Front Wheel Walker Gait Distance 200 Other Goals up/down 12 step with 1 rail CGA Days to Meet Goals 10 Frequency of Treatment Frequency Of Treatment Twice a Day Treatment Plan Physical Therapy Treatment Plan Bed Mobility Training,Transfer Training,Gait Training, Therapeutic Exercise,Balance Retraining,Post Op Education, Discharge Planning,Hot or Cold Pack,Neuromuscular Re-ed, Coordination Retraining,Manual Therapy Recommendations To Nursing Amount of Assist Needed 2 Person Assist Discharge Recommendations PT Discharge Recommendations Home with 24/7 Assist,Home Health,SNF Rehab
--- NOTE | 2019-07-18 11:40 | PC.NURSE ---
Addendum entered by Elina Jay R.N. 07/18/19 15:32: Pt given 6mg of dilaudid and pts pain seems to be more under control. Original Note: Pt has been yelling out in pain but refuses to move to get more comfortable. Given 4mg of po dilaudid and pt states that this has not been helpful to her. She has been on her light several times and yelling loudly from her room and this is heard in the reed ways. Door has remained shut. Pt just given 15mg of po percolone and she states that this has not helped her. Just given valium po and this has seemed to help pt relax. in room and explained that pt cant be yelling loudly as other people can hear her. Staff does understand pt is in pain and we will keep her door closed. Just phoned Dr. Edmondson and he has increased pts dilaudid from 4mg-8mg. We will give pt 6mg for the first time to make sure that she tolerated it well and she is not overmedicated. Pt will be due for meds around 1400. is at bedside now.
[2019-07-18] MEDS: GABAPENTIN 300 MG CAPSULE PO ×2 (14:09→20:41)
[2019-07-18] MEDS: HYDROMORPHONE 2 MG TABLET 8 MG PO ×3 (14:10→20:40)
--- NOTE | 2019-07-18 14:21 | PT.IPTN ---
Current Diagnoses Intervertebral disc disorders with radiculopathy, lumbar region (07/16/19) Strain of muscle, fascia and tendon of lower back, initial encounter (07/16/19) Surgery Performed Operation Date: 07/16/19 11:15 Actual Procedures p L45 discectomy & L45 discectomy & instrumented fusion w/ bone graft - Eugenio Edmondson MD Physical Therapy Treatment Note M2 PT-IP Current Condition Start: 07/17/19 14:21 Freq: NEEDED Status: Active Protocol: Document 07/17/19 10:44 AB (Rec: 07/17/19 14:43 AB [id number]) Physical Therapy Current Condition Current Condition Evaluation Date 07/17/19 Treatment Diagnosis s/p L5S1 TLIF; L4-5 discectomy ; difficulty in walking Onset Date 07/16/19 Precautions Lumbar Precautions Log Roll,No Twisting,Limit Bending,Lifting Restriction of 10 lbs,Gait Belt above Incisional Area M3 PT-IP Subjective Start: 07/17/19 14:21 Freq: NEEDED Status: Active Protocol: Document 07/18/19 14:11 CLB (Rec: 07/18/19 14:47 CLB [id number]) Subjective Physical Therapy Visit Type Type Patient Refusal Notes Pt declined getting up OOB. Assisted BAKERY HELPER with repositioning pt in bed on right side with bed tilted to 14 degrees, pillows repositioned behind pt and pillow placed between pt's legs and in front of pt for comfort. SCD's on, call light within reach and bed alarm on. present. M4 PT-IP Mobility and Gait Start: 07/17/19 14:21 Freq: NEEDED Status: Active Protocol: Document 07/18/19 11:02 CLB (Rec: 07/18/19 13:12 CLB [id number]) PT-Transfer Assessment Transfer Ability Level of Assist Total Assistance Comments Mobility Comments Pt was unable to stand with two person assist stating the pain was too bad and she said she was too tired and just wanted to sleep. Pt was transferred to bed with overhead lift. Gait Assessment Comments Gait Comments unable M5 PT-IP Objective Assessments Start: 07/17/19 14:21 Freq: NEEDED Status: Active Protocol: Document 07/17/19 10:44 AB (Rec: 07/17/19 14:43 AB [id number]) Orientation Orientation/Cognition Level of Alertness Alert Orientation Name,Age,Birthday,Place, Situation Language Function Ability No Deficits Noted Safety Awareness Understands Safety Issues Memory Description No Deficits Noted Gross Range of Motion Lower Extremity ROM Assessment Within Functional Limits Strength Lower Extremity Strength Assessment Bilaterally Impaired Hip 3+/5 Knee 4-/5 Coordination Assessment Gross Coordination Gross Coordination WNL Sensation Assessment Sensation Gross Sensation Left LE Impaired Sensation Description Numbness,Tingling Muscle Tone Muscle Tone WNL Yes M6 PT-IP Treatment Start: 07/17/19 14:21 Freq: NEEDED Status: Active Protocol: Document 07/17/19 13:35 AB (Rec: 07/17/19 14:56 AB [id number]) Physical Therapy Treatment Education Education Provided Precautions,Safety M7 PT-IP Assessment and Plan Start: 07/17/19 14:21 Freq: NEEDED Status: Active Protocol: Document 07/18/19 11:02 CLB (Rec: 07/18/19 13:12 CLB [id number]) PT Summary Assessment and Plan Summary Progress Towards Goals Slow Progress due to Pain Assessment Summary Pt with increased pain unable to stand due to pain and fatigue pt was transferred to bed with overhead lift. Pt screamed in pain during tx and once pt was placed onto the bed pt was unable to tolerate laying in supine to attempt to get pt on left side. Pt remained in bed with HOB elevated, pt was c/o cramps in left and right thigh as well as burning from catheter. Left pt in bed with HOB elevated, alarm on and call light within reach. Pt present. BAKERY HELPER to inform RN of pt pain and discomfort. Goals Bed Mobility Goal Standby Assistance Transfer Goal Standby Assistance,Front Wheeled Walker Gait Goal Standby Assistance,Front Wheel Walker Gait Distance 200 Other Goals up/down 12 step with 1 rail CGA Days to Meet Goals 10 Frequency of Treatment Frequency Of Treatment Twice a Day Treatment Plan Physical Therapy Treatment Plan Bed Mobility Training,Transfer Training,Gait Training, Therapeutic Exercise,Balance Retraining,Post Op Education, Discharge Planning,Hot or Cold Pack,Neuromuscular Re-ed, Coordination Retraining,Manual Therapy Recommendations To Nursing Amount of Assist Needed 2 Person Assist Discharge Recommendations PT Discharge Recommendations Home with 24/7 Assist,Home Health,SNF Rehab
--- NOTE | 2019-07-18 19:53 | CM.MNRNOTE ---
Addendum entered by Era Yang R.N. 07/18/19 23:45: New orders; lovonox 30mg Sub Q BID. Original Note: kPt has been up to [facility] x3 this shift, but no BM. requesting pain medication as soon as it is available, and reports better efficacy than oxycodone. also requesting valuim, vistaril, and tizanidine when available for right and left leg spasms. CBG @ 1599-127, @ , Lantus 40 units @ 2100. Pt refused duarte removal, as well as bilat feet SCD's. Pt said would except lovonox or heparin injections for DVT prophylaxis. Dr Edmondson called, awaiting call back. Pt lying on left side with waffle cushion, with ice to back and warm pack to legs.
[2019-07-18] MEDS: TIZANIDINE 4 MG TABLET 6 MG PO (20:41)
[2019-07-18] MEDS: ENOXAPARIN 30 MG/0.3 ML SYRINGE SUBCUT (20:41)
[2019-07-18] MEDS: SENNOSIDES 8.6 MG TABLET 17.2 MG PO (20:41)
[2019-07-18] MEDS: INSULIN GLARGINE 100 UNIT/ML 3ML PEN 40 UNIT SUBCUT (20:43)
[2019-07-19] VITALS (7 sets, daily range): BP systolic 97–160; BP diastolic 50–88; PULSE 84–106; RESP 16–22; TEMP 36.1–37.3; O2SAT 95–100
[2019-07-19] MEDS: HYDROMORPHONE 2 MG TABLET 4 MG PO ×8 (00:33→23:45)
[2019-07-19] MEDS: hydrOXYzine pamoate 25 MG CAPSULE PO ×2 (00:33→05:03)
[2019-07-19] MEDS: diazePAM 5 MG TABLET PO ×3 (03:36→18:00)
--- NOTE | 2019-07-19 07:52 | PM.PNPO.1 ---
Subjective Subjective Date Patient Seen: 07/19/19 Time Patient Seen: 07:52 Interval history: Pain seems to be worse. Besides the back pain, it is now radiating into the right buttock and lateral right thigh. She thinks this may be because she was laying on that side for so long. She was not getting up much at all yesterday but now reports that she was up several times overnight because she could not get comfortable. Exam Vital Signs (past 8 hours): - 07/19/19 00:15 07/19/19 06:46 Temperature 97.9 F 98.2 F Pulse Rate 99 H 106 H Respiratory Rate 22 22 Blood Pressure 97/50 L 160/88 H Pulse Oximetry 100 99 Oxygen Delivery Method Room Air Oxygen Flow Rate 0 Const Orientation: alert and oriented x3 Back/Spine/Pelvis Other: CDI. 5/5 motor both lower extremities Objective Labs Result Diagrams: 07/17/19 05:40 Assessment & Plan Post-op Postoperative Procedures: Procedures Operation Date: 07/16/19 11:15 Actual Procedures Side Surgeon p L45 discectomy & L45 discectomy & instrumented fusion w/ bone graft Eugenio Edmondson MD Her pain is been escalating. Now that she is getting some right leg pain, the opposite side, I am going to start her on some IV steroids. I let her know that this will probably elevate her blood glucose levels but I think it is worth it at this point. We switched her over to Dilaudid and I encourage the nurse to give her another dose now. I also started her on Lovenox yesterday for her lack of mobility. Quality VTE Deep Vein Thrombosis/Pulmonary Embolism Present on Admission: No
[2019-07-19] MEDS: ENOXAPARIN 30 MG/0.3 ML SYRINGE SUBCUT ×2 (08:19→21:26)
[2019-07-19] MEDS: AMLODIPINE 5 MG TABLET PO (08:19)
[2019-07-19] MEDS: GABAPENTIN 300 MG CAPSULE PO ×3 (08:19→21:26)
[2019-07-19] MEDS: DOCUSATE 100 MG CAPSULE PO ×2 (08:19→21:26)
[2019-07-19] MEDS: DEXAMETHASONE 10 MG/ML VIAL IV (08:19)
[2019-07-19] MEDS: MAGNESIUM HYDROXIDE 30 ML UDC PO (08:21)
[2019-07-19] MEDS: SODIUM CHLORIDE 0.9% FLUSH 10 ML IV ×3 (08:21→21:33)
[2019-07-19] MEDS: LISINOPRIL 20 MG TABLET PO (08:21)
[2019-07-19] MEDS: buPROPion 100 MG TABLET PO (08:22)
--- NOTE | 2019-07-19 08:30 | PC.NURSE ---
Addendum entered by Brandy Ladd R.N. 07/19/19 10:36: Patient walked into bathroom with therapy, voided, no BM, given Milk of mag and prunes. Patient reports flatus. Rates pain to back a 4/10 and right thigh 6/10, but reports pain is improved. Given 5mg PO valium for right thigh spasms. Addendum entered by Brandy Ladd R.N. 07/19/19 08:50: Patient rates pain to back and right leg 6/10, reports 4mg po Dilaudid helpful, sitting at edge of bed. Original Note: Patient assisted to BSC and then back to bed, patient crying in pain, c/o spasms to right thigh, rated pain 9/10. Dr Edmondson in to assess, given another 4mg PO Dilaudid. Steroids ordered. Ice pack to back placed. Scd's applied.
--- NOTE | 2019-07-19 10:10 | PT.IPTN ---
Current Diagnoses Intervertebral disc disorders with radiculopathy, lumbar region (07/16/19) Strain of muscle, fascia and tendon of lower back, initial encounter (07/16/19) Surgery Performed Operation Date: 07/16/19 11:15 Actual Procedures p L45 discectomy & L45 discectomy & instrumented fusion w/ bone graft - Eugenio Edmondson MD Physical Therapy Treatment Note M2 PT-IP Current Condition Start: 07/17/19 14:21 Freq: NEEDED Status: Active Protocol: Document 07/17/19 10:44 AB (Rec: 07/17/19 14:43 AB [id number]) Physical Therapy Current Condition Current Condition Evaluation Date 07/17/19 Treatment Diagnosis s/p L5S1 TLIF; L4-5 discectomy ; difficulty in walking Onset Date 07/16/19 Precautions Lumbar Precautions Log Roll,No Twisting,Limit Bending,Lifting Restriction of 10 lbs,Gait Belt above Incisional Area M3 PT-IP Subjective Start: 07/17/19 14:21 Freq: NEEDED Status: Active Protocol: Document 07/19/19 09:47 CLB (Rec: 07/19/19 10:37 CLB [id number]) Subjective Physical Therapy Visit Type Type Treatment Note Visit Start Time 09:47 Visit Stop Time 10:10 Total Visit Minutes 23 Notes Co-treated with OT Number of FACTORY MAINTENANCE TECHNICIAN Visits 3 Physical Therapy Visit Comments Patient Comments Pt willing to get up. Pt up at EOB upon arrival. Therapy Pain Assessment Pain When Pain Assessed At Rest Pain Present Pain Present Pain Reported Location Low back, lt hip and leg Intensity 5 Scale Used Numeric (1 - 10) Pain Behaviors Facial Grimacing,Holding Area Pain Management Techniques Re-positioning,Timing of Activity with Medications M4 PT-IP Mobility and Gait Start: 07/17/19 14:21 Freq: NEEDED Status: Active Protocol: Document 07/19/19 09:47 CLB (Rec: 07/19/19 10:37 CLB [id number]) PT-Bed Mobility Assessment Supine to Sit Supine to Sit Independent PT-Transfer Assessment Sit to and From Stand Sit to and from Stand Contact Guard Assistance,Use of Upper Extremities Equipment Transfer Assistive Device Gait Belt,Front Wheeled Walker Orthotic/Prosthetic Devices or Brace: No Transfers Transfer Destination Chair,Toilet,Bedside Commode Transfer Ability Level of Assist Contact Guard Assistance,Use of Upper Extremities Comments Mobility Comments Pt able to get to EOB IND and sit<>stand CGA. Gait Assessment Gait Gait Assistance Required: Contact Guard Assist,1 Person Assist Distance (Feet) 30 Able to Maintain Weight Bearing Status Yes During Gait Assistive Devices Assistive Device Gait Belt,Front Wheeled Walker Orthotic/Prosthetic Devices or Brace: No Gait Deviations General Gait Pattern Antalgic,Decreased Stride Length,Decreased Feet Clearance,Step-to Gait Factors Limiting Gait Function Factors Limiting Gait Function Decreased Activity Tolerance, Decreased Sensation,Decreased Strength,Limited Range of Motion,Pain,Poor Balance Comments Gait Comments Pt walked from bed to BR then to sink. Pt then ambulated from sink and out to reed ~ 15ft with chair follow. Pt rode chair back into room. M5 PT-IP Objective Assessments Start: 07/17/19 14:21 Freq: NEEDED Status: Active Protocol: Document 07/17/19 10:44 AB (Rec: 07/17/19 14:43 AB [id number]) Orientation Orientation/Cognition Level of Alertness Alert Orientation Name,Age,Birthday,Place, Situation Language Function Ability No Deficits Noted Safety Awareness Understands Safety Issues Memory Description No Deficits Noted Gross Range of Motion Lower Extremity ROM Assessment Within Functional Limits Strength Lower Extremity Strength Assessment Bilaterally Impaired Hip 3+/5 Knee 4-/5 Coordination Assessment Gross Coordination Gross Coordination WNL Sensation Assessment Sensation Gross Sensation Left LE Impaired Sensation Description Numbness,Tingling Muscle Tone Muscle Tone WNL Yes M6 PT-IP Treatment Start: 07/17/19 14:21 Freq: NEEDED Status: Active Protocol: Document 07/17/19 13:35 AB (Rec: 07/17/19 14:56 AB [id number]) Physical Therapy Treatment Education Education Provided Precautions,Safety M7 PT-IP Assessment and Plan Start: 07/17/19 14:21 Freq: NEEDED Status: Active Protocol: Document 07/19/19 09:47 CLB (Rec: 07/19/19 10:37 CLB [id number]) PT Summary Assessment and Plan Summary Impairments Pain,ROM,Strength,Balance, Coordination,Sensation,Tone, Cognition,Bed Mobility, Transfers,Gait,Activity Tolerance Progress Towards Goals Slow Progress due to Pain Assessment Summary Pt improving with all mobility and was able to go to the BR to urinate and Performed own pericare then walked to sink but sat while brushing her teeth. Pt then ambulate ~15ft with chair follow. Pt will need stair training and will require CG training before d/c home. Goals Bed Mobility Goal Standby Assistance Transfer Goal Standby Assistance,Front Wheeled Walker Gait Goal Standby Assistance,Front Wheel Walker Gait Distance 200 Other Goals up/down 12 step with 1 rail CGA Days to Meet Goals 10 Frequency of Treatment Frequency Of Treatment Twice a Day Treatment Plan Physical Therapy Treatment Plan Bed Mobility Training,Transfer Training,Gait Training, Therapeutic Exercise,Balance Retraining,Post Op Education, Discharge Planning,Hot or Cold Pack,Neuromuscular Re-ed, Coordination Retraining,Manual Therapy Recommendations To Nursing Amount of Assist Needed 1 Person Assist Discharge Recommendations PT Discharge Recommendations Home with 21/04 Assist,Home Health,SNF Rehab
--- NOTE | 2019-07-19 10:13 | OT.IP.TRT ---
Current Diagnoses Intervertebral disc disorders with radiculopathy, lumbar region (07/16/19) Strain of muscle, fascia and tendon of lower back, initial encounter (07/16/19) Surgery Performed Operation Date: 07/16/19 11:15 Actual Procedures p L45 discectomy & L45 discectomy & instrumented fusion w/ bone graft - Eugenio Edmondson MD Occupational Therapy Treatment Note M2 OT-IP Current Condition Start: 07/17/19 16:10 Freq: Status: Active Protocol: Document 07/17/19 16:10 CGR (Rec: 07/17/19 16:35 CGR [email or web address]) Occupational Therapy Current Condition Current Condition Evaluation Date 07/17/19 Treatment Diagnosis L4-5 deisectomy and fusion. Diagnosis Onset Date 07/16/19 Post Operative Precautions Lumbar Precautions Log Roll,No Twisting,Limit Bending,Lifting Restriction of 10 lbs,Gait Belt above Incisional Area M3 OT- IP Subjective and Pain Start: 07/17/19 16:10 Freq: Status: Active Protocol: Document 07/19/19 10:15 CGR (Rec: 07/19/19 10:25 CGR [id number]) OT- Subjective Occupational Therapy Visit Type Type Treatment Note Visit Start Time 09:38 Visit Stop Time 10:13 Total Visit Minutes 35 Notes co-treat with P.T. OT Pain Assessment Pain When Pain Assessed At Rest Pain Present Pain Present Pain Reported Location Low back, lt hip and leg Intensity 5 Scale Used Numeric (1 - 10) Description Cramping Management Techniques Modification of Treatment, Timing of Activity with Medications M4 OT- IP ADL's Start: 07/17/19 16:10 Freq: Status: Active Protocol: Document 07/19/19 10:15 CGR (Rec: 07/19/19 10:25 CGR [id number]) OT [id number] General Evaluation Self-Feeding Ability Independent Comments OT Self-Feeding Comments Breakfast, eating as OT exited . OT ADL-Grooming General Evaluation Grooming Ability Standby Assistance Areas Needing Assistance Face Washing Comments OT Grooming Comments seated at sink OT ADL-Oral Care General Eval Oral Care Ability Standby Assistance Areas of Assistance Brushing Teeth Comments Oral Care Comments seated at sink OT ADL-Dressing General Eval Upper Body Dressing Ability Minimal Assistance Comments OT Dressing Comments gown as robe for reed walking OT ADL-Toileting General Evaluation Toileting Ability Standby Assistance Comments OT Toileting Comments seated on toilet OT ADL-Bathing Comments OT Bathing Comments Not performed on this date M5 OT- IP IADL's Start: 07/17/19 16:10 Freq: Status: Active Protocol: Document 07/17/19 16:10 CGR (Rec: 07/17/19 16:35 CGR [email or web address]) OT-Instrumental Activities of Daily Living Deficits IADL Deficits Identified Deficits Home Safety Awareness Awareness of Need for Assistance at Home Good Awareness Ability to Problem Solve Emergency Able to Problem Solve Situations Home Safety Comments Pt appears to have a supportive hsuband who will help her upon discharge. plans to be home for 10-17 days to help. 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 M6 OT- IP Functional Cognition Start: 07/17/19 16:10 Freq: Status: Active Protocol: Document 07/17/19 16:10 CGR (Rec: 07/17/19 16:35 CGR [email or web address]) Cognitive Factors Limiting Selfcare Function Cognitive Ability Level of Alertness Alert Patient Orientation Name,Age,Birthday,Month,Date, Year,Day of Week,Place, Situation Attention Span Ability Capable of Focused Attention, Capable of Sustained Attention Ability to Follow Commands Able to Follow One Step Commands,Able to Follow Multi- Step Commands Memory Description No Deficits Noted Safety Awareness No Deficits Noted Problem Solving Ability No deficits Noted Executive Function Ability No Deficits Noted Abstract Thinking Ability No Deficits Noted OT- Vision and Hearing OT- Hearing Assessment OT- Hearing Assessment WFL OT- Vision Assessment Visual Acuity WFL,Glasses For Reading Visual Attentiveness WFL Occular Pursuits WFL Visual Convergence WFL Visual Pagan WFL M7 OT- IP Mobility and Balance Start: 07/17/19 16:10 Freq: Status: Active Protocol: Document 07/19/19 10:15 CGR (Rec: 07/19/19 10:25 CGR [id number]) OT- Bed Mobility Assessment Rolling Type of Rolling Roll to Left Level of Assistance Standby Assistance Supine to Sit Supine to Sit Assist Independent Scooting Scooting to Edge of Bed Standby Assistance OT-Transfer Assessment Sit to and From Stand Sit to and from Stand Contact Guard Assistance Transfers Transfer Ability Contact Guard Assistance Technique Transfer Destination Bed,Bedside Commode,Chair, Toilet Transfer Technique Stand Step Pivot Devices Transfer Assistive Devices Gait Belt,Front Wheeled Walker Comments Mobility Comments Mobility around the room and out into the reed. See P.T. note for specifics on gait. OT- Balance Assessment Sitting Balance and Reactions Static Sitting Balance Ability Good Dynamic Sitting Balance Ability Fair M8 OT- IP Objective Assessments Start: 07/17/19 16:10 Freq: Status: Active Protocol: Document 07/17/19 16:10 CGR (Rec: 07/17/19 16:35 CGR [email or web address]) OT Gross Range of Motion Upper Extremity Range of Motion Assessment Within Functional Limits OT Strength Upper Extremity Strength Assessment Within Functional Limits Comments Strength Comments grossly 4/5 throguhout OT- Coordination Assessment Upper Extremity Finger to Nose Test Within Functional Limits Finger Tapping Test Within Functional Limits OT-Muscle Tone Assessment Muscle Tone WNL Yes OT Sensation Assessment Edema Edema Absent M9 OT- IP Assessment and Plan Start: 07/17/19 16:10 Freq: Status: Active Protocol: Document 07/19/19 10:15 CGR (Rec: 07/19/19 10:25 CGR [id number]) OT Summary Assessment and Plan Potential Rehabilitation Potential Good Analytic Complexity at Evaluation Low Summary OT Impairments Pain,Balance,Functional Cognition,Functional Mobility, Grooming,Dressing,Toileting, Bathing,Toilet Transfers, Shower Transfers Progress Towards Goals Progressing Toward Goals Assessment Summary Pt presents as a low complexity evaualtion. Pt performed well with CGA for her mobility and extra time for scooting. Pt states painful cramps to the R quad that are helped with firm pressure proximal to the knee. Pt with increased mobility and endurace on this date. Possible shower candidate for tomorrow. Goals Grooming Goal Independent Dressing Goal Independent Toileting Goal Independent Bathing Goal Independent Toilet Transfer Goal Independent Shower Transfer Goal Independent Days to Meet Goals 4 Frequency of Treatment Frequency Of Treatment Once a Day Treatment Plan OT Treatment Plan ADL Training,Functional Mobility,Patient/Family Education,Discharge Planning Other Treatment Recommendations and Next shower Treatment Focus Discharge Recommendations OT Discharge Recommendations Home with 21/04 Assist Home Equipment Needs walker
[2019-07-19] MEDS: INSULIN ASPART 100 UNIT/ML INSULN PEN SUBCUT ×3 (12:20→21:27)
[2019-07-19] MEDS: DEXAMETHASONE 4 MG/ML VIAL IV ×3 (12:20→23:46)
[2019-07-19] MEDS: BISACODYL 10 MG SUPP PR (14:02)
[2019-07-19] MEDS: FLEETS ENEMA 1 EACH PR (14:44)
--- NOTE | 2019-07-19 14:46 | PT.IPTN ---
Current Diagnoses Intervertebral disc disorders with radiculopathy, lumbar region (07/16/19) Strain of muscle, fascia and tendon of lower back, initial encounter (07/16/19) Surgery Performed Operation Date: 07/16/19 11:15 Actual Procedures p L45 discectomy & L45 discectomy & instrumented fusion w/ bone graft - Eugenio Edmondson MD Physical Therapy Treatment Note M2 PT-IP Current Condition Start: 07/17/19 14:21 Freq: NEEDED Status: Active Protocol: Document 07/17/19 10:44 AB (Rec: 07/17/19 14:43 AB [id number]) Physical Therapy Current Condition Current Condition Evaluation Date 07/17/19 Treatment Diagnosis s/p L5S1 TLIF; L4-5 discectomy ; difficulty in walking Onset Date 07/16/19 Precautions Lumbar Precautions Log Roll,No Twisting,Limit Bending,Lifting Restriction of 10 lbs,Gait Belt above Incisional Area M3 PT-IP Subjective Start: 07/17/19 14:21 Freq: NEEDED Status: Active Protocol: Document 07/19/19 14:44 CLB (Rec: 07/19/19 14:46 CLB [email or web address]) Subjective Physical Therapy Visit Type Type Patient Unavailable Notes Pt is preparing to have an enema per pt and RN and would like to wait until she has a BM before participating in PT.
[2019-07-19] MEDS: ACETAMINOPHEN 325 MG TABLET 650 MG PO (15:50)
[2019-07-19] MEDS: SENNOSIDES 8.6 MG TABLET 17.2 MG PO (21:26)
[2019-07-19] MEDS: INSULIN GLARGINE 100 UNIT/ML 3ML PEN 40 UNIT SUBCUT (21:28)
--- NOTE | 2019-07-19 23:27 | PC.NURSE ---
pt ambulated in hallways. SBA-FWW. she has been getting up to the BR. pain controlled with 4mg dilaudid, valium and tylenol. dressing cdi. pt refused her shower today. voiding and eliminating without problem. call light in reach.
[2019-07-20] MEDS: HYDROMORPHONE 2 MG TABLET 4 MG PO ×4 (03:02→12:35)
[2019-07-20] MEDS: diazePAM 5 MG TABLET PO (03:02)
[2019-07-20 03:12] VITALS: BP 137/86; PULSE 88; RESP 19; TEMP 36.4; O2SAT 98
[2019-07-20] MEDS: DEXAMETHASONE 4 MG/ML VIAL IV (06:05)
--- NOTE | 2019-07-20 06:10 | PC.NURSE ---
Shift note: Received pt from evening shift. Pt axox3, able to make needs known, pain managed on 4mg PO Dilaudid Q3 and 5mg PO Valium for spasms. VSS and on RA. Pt ambulated to chair around 3am with c/o pain and spasms in left leg. Dressing is C/D/I. Pt reports a fall back in April and a history of falling down her stairs in her past, pt is a high fall risk d/t medications, hx of falling, and occasional weakness in left leg.
--- NOTE | 2019-07-20 07:33 | PM.PNPO.1 ---
Subjective Subjective Date Patient Seen: 07/20/19 Time Patient Seen: 07:33 Interval history: She is doing much better. The steroid seem to have made a tremendous improvement in both her back pain and her new right leg symptoms. She was up and mobilizing yesterday. She required standby assistance but no one to lift or upper move her around. She still has not done stairs. Exam Vital Signs (past 8 hours): - 07/20/19 03:12 Temperature 97.5 F L Pulse Rate 88 Respiratory Rate 19 Blood Pressure 137/86 Pulse Oximetry 98 Oxygen Delivery Method Room Air Oxygen Flow Rate 0 Const Orientation: alert and oriented x3 Back/Spine/Pelvis Other: CDI. 5/5 motor both lower extremities Objective Labs Result Diagrams: 07/17/19 05:40 Assessment & Plan Post-op Postoperative Procedures: Procedures Operation Date: 07/16/19 11:15 Actual Procedures Side Surgeon p L45 discectomy & L45 discectomy & instrumented fusion w/ bone graft Eugenio Edmondson MD she is doing much better. Plan to mobilize with therapy. If she is doing well this afternoon then discharged home. Quality VTE Deep Vein Thrombosis/Pulmonary Embolism Present on Admission: No
--- NOTE | 2019-07-20 07:34 | PM.DS.1 ---
History of Present Illness History of Present Illness Date Patient Seen: 07/20/19 Time Patient Seen: 12:35 Chief complaint: [id number] Narrative: 48-year-old female with severe left leg radiculopathy from 2 lumbar disc herniations. She had failed physical therapy and epidural injections. Discharge Providers Provider Date of admission: 07/16/19 09:09 Discharge Date: 07/20/19 Primary care physician: ALBA Tam Consults: 07/16/19 16:45 Consult to Occupational Therapy Evaluate & Treat Comment: Physician Instructions: Evaluate and treat Consult to Physical Therapy Evaluate & Treat Comment: Physician Instructions: Evaluate and Treat Discharge provider: Eugenio Edmondson MD Summary Hospital Course Discharge Diagnosis: Lumbar disc herniations Hospital Course: She is brought to the operating room on 07/16/19 for left-sided diskectomies at L4-5 and L5-S1 as well as an instrumented fusion at L5-S1. All of her leg pain resolved with surgery but the back pain was severe afterwards. She had significant problems with postoperative pain control. Isi she had been on oxycodone but this was switched over to Dilaudid which seemed to be helping some. She began getting increasing radicular signs going down the right leg. Due to her significant pain and increasing radiculopathy on the opposite side, she was given a course of IV steroids. This made a tremendous difference and improved pain and mobility. However, this also escalated her glucose and diabetic control was more difficult. Status at Discharge Cognitive/behavioral status at discharge: oriented Functional status at discharge: uses cane/walker Overall status at discharge: patient is progressing back to baseline Exam Vital Signs (past 8 hours): - 07/20/19 03:12 Temperature 97.5 F L Pulse Rate 88 Respiratory Rate 19 Blood Pressure 137/86 Pulse Oximetry 98 Oxygen Delivery Method Room Air Oxygen Flow Rate 0 Const Orientation: alert and oriented x3 Back/Spine/Pelvis Other: CDI. 5/5 motor both lower extremities Objective Labs Result Diagrams: 07/17/19 05:40 Discharge Plan Discharge Plan Patient Disposition: Home Discharge comment: f/u 1 wk-07/30 @ 9:30 with willow roach @ [facility] Discharge Med Rec/Prescriptions Prescriptions: New diazepam 5 mg Tablet 5 mg PO Q6H PRN (Reason: Spasms) Qty: 20 RF: 0 docusate sodium [DOK] 100 mg Capsule 100 mg PO BID Qty: 30 RF: 0 hydromorphone 2 mg Tablet See Rx Instructions .ROUTE .COMPLEX PRN (Reason: Pain, Moderate (4-6)) Qty: 40 RF: 0 Continued docusate sodium [Colace] 100 mg Capsule 100 mg PO BID RF: 0 gabapentin 300 mg Capsule 300 - 900 mg PO TID RF: 0 Lantus Solostar U-100 Insulin 100 unit/mL (3 mL) Insulin Pen 40 unit SUBCUT BEDTIME RF: 0 oxycodone 10 mg Tablet 10 mg PO QID RF: 0 tizanidine 4 mg Capsule 6 mg PO SEEINSTR RF: 0 lisinopril 20 mg Tablet 20 mg PO QAM RF: 0 bupropion HCl 100 mg Tablet 100 mg PO BID RF: 0 insulin lispro [Humalog KwikPen Insulin] 100 unit/mL Insulin Pen 10 - 30 unit SUBCUT TID RF: 0 amlodipine 5 mg Tablet 5 mg PO DAILY RF: 0 Follow up/Referrals: Penny Asif ARNP [Primary Care Provider] - Visit Report/Discharge Packet Instructions: Hydromorphone, Diazepam, DI for Transforaminal Lumbar Interbody Fusion Visit Report Forms: Patient Portal/API, Stroke Signs & Symptoms Discharge Data Primary Care Provider: Penny Asif Quality VTE Deep Vein Thrombosis/Pulmonary Embolism Present on Admission: No
[2019-07-20 07:40] VITALS: BP 143/71; PULSE 79; RESP 16; TEMP 36.3; O2SAT 98
[2019-07-20] MEDS: ENOXAPARIN 30 MG/0.3 ML SYRINGE SUBCUT (08:27)
[2019-07-20] MEDS: LISINOPRIL 20 MG TABLET PO (08:27)
[2019-07-20] MEDS: DOCUSATE 100 MG CAPSULE PO (08:27)
[2019-07-20] MEDS: buPROPion 100 MG TABLET PO (08:27)
[2019-07-20] MEDS: GABAPENTIN 300 MG CAPSULE PO (08:27)
[2019-07-20] MEDS: AMLODIPINE 5 MG TABLET PO (08:27)
[2019-07-20] MEDS: INSULIN ASPART 100 UNIT/ML INSULN PEN SUBCUT ×2 (08:28→11:58)
[2019-07-20] MEDS: MAGNESIUM HYDROXIDE 30 ML UDC PO (08:34)
[2019-07-20] MEDS: SODIUM CHLORIDE 0.9% FLUSH 10 ML IV (08:34)
--- NOTE | 2019-07-20 10:44 | PT.IPTN ---
Current Diagnoses Intervertebral disc disorders with radiculopathy, lumbar region (07/16/19) Strain of muscle, fascia and tendon of lower back, initial encounter (07/16/19) Surgery Performed Operation Date: 07/16/19 11:15 Actual Procedures p L45 discectomy & L45 discectomy & instrumented fusion w/ bone graft - Eugenio Edmondson MD Physical Therapy Treatment Note M2 PT-IP Current Condition Start: 07/17/19 14:21 Freq: NEEDED Status: Active Protocol: Document 07/17/19 10:44 AB (Rec: 07/17/19 14:43 AB [id number]) Physical Therapy Current Condition Current Condition Evaluation Date 07/17/19 Treatment Diagnosis s/p L5S1 TLIF; L4-5 discectomy ; difficulty in walking Onset Date 07/16/19 Precautions Lumbar Precautions Log Roll,No Twisting,Limit Bending,Lifting Restriction of 10 lbs,Gait Belt above Incisional Area M3 PT-IP Subjective Start: 07/17/19 14:21 Freq: NEEDED Status: Active Protocol: Document 07/20/19 10:16 CLB (Rec: 07/20/19 10:57 CLB [email or web address]) Subjective Physical Therapy Visit Type Type Treatment Note Visit Start Time 10:16 Visit Stop Time 10:44 Total Visit Minutes 28 Notes present for CG training. Number of OBSTETRIC ANAESTHETIST Visits 4 Physical Therapy Visit Comments Patient Comments Pt willing to get up and trial stairs. M4 PT-IP Mobility and Gait Start: 07/17/19 14:21 Freq: NEEDED Status: Active Protocol: Document 07/20/19 10:16 CLB (Rec: 07/20/19 10:57 CLB [email or web address]) PT-Bed Mobility Assessment Supine to Sit Supine to Sit Independent PT-Transfer Assessment Sit to and From Stand Sit to and from Stand Standby Assistance,Use of Upper Extremities Equipment Transfer Assistive Device Gait Belt,Front Wheeled Walker Orthotic/Prosthetic Devices or Brace: No Transfers Transfer Destination Bed,Wheelchair Transfer Ability Level of Assist Standby Assistance,Use of Upper Extremities Gait Assessment Gait Gait Assistance Required: Contact Guard Assist Distance (Feet) 60 Able to Maintain Weight Bearing Status Yes During Gait Assistive Devices Assistive Device Gait Belt,Front Wheeled Walker Orthotic/Prosthetic Devices or Brace: No Gait Deviations General Gait Pattern Decreased Stride Length, Decreased Feet Clearance Factors Limiting Gait Function Factors Limiting Gait Function Decreased Activity Tolerance, Decreased Sensation,Decreased Strength,Limited Range of Motion,Pain Comments Gait Comments Pt able to ambulate ~60ft in reed after climbing stairs. Pt steady with good safety awareness during gait . Stair Climbing Assessment Evaluation Level of Assist On Stairs Contact Guard Assistance,1 Person Assistance Devices Stair Climbing Assistive Devices Right Railing Technique/Endurance Stair Climbing Direction Ascend and Descend Stair Climbing Technique Step Over Step Number of Steps Climbed 3 Stair Climbing Set # Repetitions (reps) 4 Comments Stair Climbing Comments Pt able to climb stairs first with demontration OBSTETRIC ANAESTHETIST assisting pt then assisting pt with right rail and FINISHING MACHINE OPERATOR AUTOMATIC. M5 PT-IP Objective Assessments Start: 07/17/19 14:21 Freq: NEEDED Status: Active Protocol: Document 07/17/19 10:44 AB (Rec: 07/17/19 14:43 AB [id number]) Orientation Orientation/Cognition Level of Alertness Alert Orientation Name,Age,Birthday,Place, Situation Language Function Ability No Deficits Noted Safety Awareness Understands Safety Issues Memory Description No Deficits Noted Gross Range of Motion Lower Extremity ROM Assessment Within Functional Limits Strength Lower Extremity Strength Assessment Bilaterally Impaired Hip 3+/5 Knee 4-/5 Coordination Assessment Gross Coordination Gross Coordination WNL Sensation Assessment Sensation Gross Sensation Left LE Impaired Sensation Description Numbness,Tingling Muscle Tone Muscle Tone WNL Yes M6 PT-IP Treatment Start: 07/17/19 14:21 Freq: NEEDED Status: Active Protocol: Document 07/17/19 13:35 AB (Rec: 07/17/19 14:56 AB [id number]) Physical Therapy Treatment Education Education Provided Precautions,Safety M7 PT-IP Assessment and Plan Start: 07/17/19 14:21 Freq: NEEDED Status: Active Protocol: Document 07/20/19 10:16 CLB (Rec: 07/20/19 10:57 CLB [email or web address]) PT Summary Assessment and Plan Summary Impairments Pain,ROM,Strength,Balance, Coordination,Sensation,Tone, Cognition,Bed Mobility, Transfers,Gait,Activity Tolerance Progress Towards Goals Progressing Toward Goals Assessment Summary Pt is having good pain control and is Independent with bed mobility and SBA for all other mobility. Pt able to climb steps to assure she is safe to d/c home as she has ten steps to enter home. Pt able to climb steps with husbands assist and ambulate ~60ft. Pt seems able to d/c home with husbands assist when medically stable. Goals Bed Mobility Goal Standby Assistance Transfer Goal Standby Assistance,Front Wheeled Walker Gait Goal Standby Assistance,Front Wheel Walker Gait Distance 200 Other Goals up/down 12 step with 1 rail CGA Days to Meet Goals 10 Frequency of Treatment Frequency Of Treatment Twice a Day Treatment Plan Physical Therapy Treatment Plan Bed Mobility Training,Transfer Training,Gait Training, Therapeutic Exercise,Balance Retraining,Post Op Education, Discharge Planning,Hot or Cold Pack,Neuromuscular Re-ed, Coordination Retraining,Manual Therapy Recommendations To Nursing Amount of Assist Needed 1 Person Assist Discharge Recommendations PT Discharge Recommendations Home with Assistance
--- NOTE | 2019-07-20 11:40 | CM.DPC ---
DCP/continued: Reviewed chart. Spoke with JOE/Effie this AM. She reports that it is expected that patient will d/c home today without needs. Per LEAD BURNER, patient has improved significantly over the last few days. P: Home today. WOODROW Villegas
--- NOTE | 2019-07-20 12:17 | OT.IP.TRT ---
Current Diagnoses Intervertebral disc disorders with radiculopathy, lumbar region (07/16/19) Strain of muscle, fascia and tendon of lower back, initial encounter (07/16/19) Surgery Performed Operation Date: 07/16/19 11:15 Actual Procedures p L45 discectomy & L45 discectomy & instrumented fusion w/ bone graft - Eugenio Edmondson MD Occupational Therapy Treatment Note M2 OT-IP Current Condition Start: 07/17/19 16:10 Freq: Status: Active Protocol: Document 07/17/19 16:10 CGR (Rec: 07/17/19 16:35 CGR [id number]) Occupational Therapy Current Condition Current Condition Evaluation Date 07/17/19 Treatment Diagnosis L4-5 discectomy and fusion. Diagnosis Onset Date 07/16/19 Post Operative Precautions Lumbar Precautions Log Roll,No Twisting,Limit Bending,Lifting Restriction of 10 lbs,Gait Belt above Incisional Area M3 OT- IP Subjective and Pain Start: 07/17/19 16:10 Freq: Status: Active Protocol: Document 07/20/19 12:03 [facility] (Rec: 07/20/19 12:17 [facility] [id number]) OT- Subjective Occupational Therapy Visit Type Type Treatment Note Visit Start Time 11:10 Visit Stop Time 12:00 Total Visit Minutes 50 Occupational Therapy Visit Comments Patient Comments Pt wanting to shower and present at the beginning of the session for caregiver training. OT Pain Assessment Pain When Pain Assessed At Rest Pain Present Pain Present Denied Pain M4 OT- IP ADL's Start: 07/17/19 16:10 Freq: Status: Active Protocol: Document 07/20/19 12:03 [facility] (Rec: 07/20/19 12:17 [facility] [id number]) OT YNT-Fbpr-Jgdiamp Comments OT Self-Feeding Comments Waiting to have lunch. OT ADL-Dressing General Eval Upper Body Dressing Ability Independent Lower Body Dressing Ability Minimal Assistance Areas Needing Assistance Underpants/Brief,Shoes Assistive Devices Dressing Assistive Devices Document Clerk Comments OT Dressing Comments Pt needing assist to help reposition pad in underwear when standing up and holding onto grab bar for balance. Also needing assist to hold slippers in place while sliding her feet into the slippers. OT ADL-Toileting Comments OT Toileting Comments Suggested to use toilet aid or have bidet to assist for completeness after bowel movement. Otherwise pt's will have to assist. OT ADL-Bathing Bathing Type Bathing Type Sponge Bath General Evaluation Bathing Ability Minimal Assistance Areas Needing Assistance Wash/Dry Back,Wash/Dry Perineal Area Devices Bathing Equipment Hand Held Shower Sprayer, Shower Chair without Arms,Grab Bars Comments OT Bathing Comments Pt able to most of showering needs while seated and use of long handle sponge to wash her feet. Just needing assist to clean her back and bottom as unable to reach back all back to clean. Pt aware will have to assist. M5 OT- IP IADL's Start: 07/17/19 16:10 Freq: Status: Active Protocol: Document 07/17/19 16:10 CGR (Rec: 07/17/19 16:35 CGR [id number]) OT-Instrumental Activities of Daily Living Deficits IADL Deficits Identified Deficits Home Safety Awareness Awareness of Need for Assistance at Home Good Awareness Ability to Problem Solve Emergency Able to Problem Solve Situations Home Safety Comments Pt appears to have a supportive hsuband who will help her upon discharge. plans to be home for 10-17 days to help. 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 07/20/19 Encourage pt to problem solve with pt's how pt will take care of the dogs when he goes back to work. Suggested to get long handled dust pacheco to lower food bowls, or sit to a low chair and lower food down, or just have neighbor come and assist for needs. M6 OT- IP Functional Cognition Start: 07/17/19 16:10 Freq: Status: Active Protocol: Document 07/17/19 16:10 CGR (Rec: 07/17/19 16:35 CGR [id number]) Cognitive Factors Limiting Selfcare Function Cognitive Ability Level of Alertness Alert Patient Orientation Name,Age,Birthday,Month,Date, Year,Day of Week,Place, Situation Attention Span Ability Capable of Focused Attention, Capable of Sustained Attention Ability to Follow Commands Able to Follow One Step Commands,Able to Follow Multi- Step Commands Memory Description No Deficits Noted Safety Awareness No Deficits Noted Problem Solving Ability No deficits Noted Executive Function Ability No Deficits Noted Abstract Thinking Ability No Deficits Noted OT- Vision and Hearing OT- Hearing Assessment OT- Hearing Assessment WFL OT- Vision Assessment Visual Acuity WFL,Glasses For Reading Visual Attentiveness WFL Occular Pursuits WFL Visual Convergence WFL Visual Pagan WFL M7 OT- IP Mobility and Balance Start: 07/17/19 16:10 Freq: Status: Active Protocol: Document 07/20/19 12:03 [facility] (Rec: 07/20/19 12:17 [facility] [id number]) OT- Bed Mobility Assessment Rolling Type of Rolling Roll to Left Level of Assistance Standby Assistance Supine to Sit Supine to Sit Assist Independent Scooting Scooting to Edge of Bed Standby Assistance OT-Transfer Assessment Sit to and From Stand Sit to and from Stand Standby Assistance,Contact Guard Assistance Transfers Transfer Ability Contact Guard Assistance Technique Transfer Destination Bed,Chair,Shower Stall Transfer Technique Stand Step Pivot Devices Transfer Assistive Devices Gait Belt,Front Wheeled Walker Comments Mobility Comments Occasional CGA to stand from lower surfaces and when pt tires. M8 OT- IP Objective Assessments Start: 07/17/19 16:10 Freq: Status: Active Protocol: Document 07/17/19 16:10 CGR (Rec: 07/17/19 16:35 CGR [email or web address]) OT Gross Range of Motion Upper Extremity Range of Motion Assessment Within Functional Limits OT Strength Upper Extremity Strength Assessment Within Functional Limits Comments Strength Comments grossly 4/5 throguhout OT- Coordination Assessment Upper Extremity Finger to Nose Test Within Functional Limits Finger Tapping Test Within Functional Limits OT-Muscle Tone Assessment Muscle Tone WNL Yes OT Sensation Assessment Edema Edema Absent M9 OT- IP Assessment and Plan Start: 07/17/19 16:10 Freq: Status: Active Protocol: Document 07/20/19 12:03 [facility] (Rec: 07/20/19 12:17 [facility] [id number]) OT Summary Assessment and Plan Potential Rehabilitation Potential Good Analytic Complexity at Evaluation Low Summary Progress Towards Goals Progressing Toward Goals Assessment Summary Pt's present for caregiver training and feels comfortable to assist pt for all needs. Pt to go home today. Goals Days to Meet Goals 1 Frequency of Treatment Frequency Of Treatment Once a Day Treatment Plan OT Treatment Plan Patient/Family Education, Discharge Planning Discharge Recommendations OT Discharge Recommendations Home with 21/04 Assist
--- NOTE | 2019-07-20 14:39 | PC.NURSE ---
Addendum entered by Brandy Ladd R.N. 07/20/19 14:45: Went over dc instructions and meds with patient, questions answered. Patient taken via wheelchair to vehicle driven by spouse, patient had all belongings and is aware of follow up appt. Addendum entered by Brandy Ladd R.N. 07/20/19 14:40: [facility] pharmacist Ronal called to report that patient had rx for oxycodone filled 10 days ago and prescribed by different provider. PAtient was given new rx at discharge for dilaudid po. Called Dr Edmondson and informed of above and stated that that's ok, she just had surgery and that patient was to be instructed to not take the oxycodone, just the dilaudid for post op pain. Patient verbalized understanding. Call placed by this RN back to Ronal pharmacist at [facility] and informed that Dr Edmondson had been informed of the oxycodone rx that was recently filled and that it was ok for the dilaudid to be filled. Original Note: Patient alert, oriented, rates pain to back 6/10 given 4mg po dilaudid. Pt able to work on stairs with therapy and showered. Discharging later this afternoon.
== END 2019-07-20 14:47 | disposition home or self-care (01) | DRG 454 ==
PROVIDERS: Admitting Provider Orthopaedic Surgery; PCP Nurse Practitioner Family; Referring Provider Physical Medicine & Rehabilitation; Visit Provider Orthopaedic Surgery
PROC: 0SG30AJ Fusion of Lumbosacral Joint with Interbody Fusion Device, Posterior Approach, Anterior Column, Open Approach (ICD-10-PCS; principal; 2019-07-16 11:15)
DX: M51.16 Intervertebral disc disorders with radiculopathy, lumbar region (principal); Z68.41 Body mass index [BMI] 40.0-44.9, adult; S39.012A Strain of muscle, fascia and tendon of lower back, initial encounter; W10.9XXA Fall (on) (from) unspecified stairs and steps, initial encounter; E11.9 Type 2 diabetes mellitus without complications; Z79.4 Long term (current) use of insulin; E66.01 Morbid (severe) obesity due to excess calories; M79.604 Pain in right leg
CPT/HCPCS: 36415; 72100; 76000; 82962; 85014; 85018; 94762; 97116; 97162; 97165; 97530; 97535; C1776; J0131; J0330; J0360; J0595; J1100; J1170; J1650; J2250; J2274; J2405; J2704; J3010; J3410

== ENCOUNTER 2020-06-24 21:31 | Emergency (ER) | payer OTHER, SELFPAY ==
[2019-07-16 17:51] VITALS: BMI 42.4
[2020-06-24 21:47] VITALS: BP 172/79; PULSE 79; RESP 18; TEMP 36.6; O2SAT 98
--- NOTE | 2020-06-24 21:48 | DI.RAD.S_ITS ---
PROCEDURE: XR CHEST 1V INDICATIONS: Shortness of breath TECHNIQUE: One view of the chest was acquired. COMPARISON: [facility] [place], [place], XR LUMBAR SPINE 2 OR 3 VIEWS, 09/13/2019, 15:47. Prior chest radiograph, 06/11/2019 FINDINGS: Surgical changes and devices: None. Lungs and pleura: Lungs are clear. No pleural effusions or pneumothorax. Mediastinum: Mediastinal contours appear normal. Heart size is normal. Bones and chest wall: No suspicious bony lesions. Overlying soft tissues appear unremarkable. IMPRESSION: Portable chest within normal limits. Dictated by: Joselo Gale M.D. on 06/25/2020 at 7:50 Approved by: Joselo Gale M.D. on 06/25/2020 at 7:53
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
[2020-06-24 22:19] LABS: COVID19 -Nasal RAPID Negative (Negative)
[2020-06-24 22:19] LABS: Add Manual Diff / Slide Review NO; Basophils Absolute Auto 100 /uL (0-100); Eosinophils Absolute Auto 400 /uL (0-450); Eosinophils Percent Auto 5.4 % (2-4); Hematocrit 40.2 % (36-46); Hemoglobin 13.8 g/dL (12.0-16.0); Lymphocytes Absolute Auto 2900 /uL (1100-4500); Lymphocytes Percent Auto 39.5 % (25-40); Mean Corpuscular HGB Conc 34.3 % (30-36); Mean Corpuscular Hemoglobin 30.1 PG (26-34); Mean Corpuscular Volume 87.6 fL (80-100); Monocytes Absolute Auto 500 /uL (0-900); Monocytes Percent Auto 6.9 % (3-14); Neutrophils Absolute Auto 3400 /uL (1500-7000); Neutrophils Percent Auto 47.2 % (50-75); Platelet Count 225 X10^3/uL (150-400); Red Blood Cell Count 4.59 X10^6/uL (4.0-5.2); White Blood Cell Count 7.3 X10^3/uL (4.5-11.0)
[2020-06-24 22:27] LABS: Alanine Aminotransferase 16 IU/L (<35); Albumin 4.1 g/dL (3.5-5.0); Albumin Globulin Ratio 1.2 (1.0-2.8); Alkaline Phosphatase 69 U/L (38-126); Aspartate Aminotransferase 16 IU/L (14-36); Bilirubin Total 0.4 mg/dL (0.2-1.3); Blood Urea Nitrogen 14 mg/dL (7-17); Calcium 9.1 mg/dL (8.4-10.2); Carbon Dioxide 23 mmol/L (22-32); Chloride 105 mmol/L (98-107); Creatine Kinase 97 U/L (30-135); Estimated Glomerular Filt Rate > 60.0 mL/min (>60); Globulin 3.3 g/dL (1.7-4.1); Glucose 305 mg/dL (70-100); HEMOLYSIS < 15 (0-50); Lipase 114 U/L (23-300); Potassium 4.1 mmol/L (3.4-5.1); Sodium 137 mmol/L (137-145); Total Protein 7.4 g/dL (6.3-8.2)
[2020-06-24 22:39] LABS: NT-proBNP (BNP-Adult 18+) 134 pg/mL (<125); Troponin I < 0.012 ng/mL (0.01-0.034)
[2020-06-24] MEDS: methylPREDNISolone 125 MG/2 ML VIAL IV (22:45)
[2020-06-24 23:06] VITALS: BP 132/58; PULSE 74; RESP 20; TEMP 36.7; O2SAT 99
== END 2020-06-24 23:06 | disposition home or self-care (01) ==
PROVIDERS: Emergency Provider Emergency Medicine; PCP Nurse Practitioner Family
DX: J45.901 Unspecified asthma with (acute) exacerbation (principal)
CPT/HCPCS: 36415; 71045; 80053; 82550; 83690; 83880; 84484; 85025; 87635; 93005; 96374; 99284; J2930

== ENCOUNTER 2021-12-02 15:36 | Emergency (ER) | payer SELFPAY ==
[2019-07-16 17:51] VITALS: BMI 42.4
[2021-12-02 15:55] VITALS: BP 194/89; PULSE 83; RESP 18; TEMP 36.4; O2SAT 97
--- NOTE | 2021-12-02 19:08 | ED_ITS ---
HPI - Back Pain/Injury General Chief Complaint: Back Pain/Injury Stated Complaint: can't walk, hip pain/shooting pain Time Seen by Provider: 12/02/21 17:59 Source: patient Mode of arrival: Ambulatory History of Present Illness HPI Narrative: Patient is a 51-year-old female. Has a known history of lower back issues. Has had spine surgery in the past. Is under the care of pain management for chronic back pain. Is here for evaluation of right-sided lower back pain that radiates down into her right hip and down the back of her right leg. She has had issues off and on for the past couple months with this episode has been going on for the past couple days. There is not 1 specific incident that caused her symptoms to occur. No fevers. Has been taking her medications at home as directed. Related Data Home Medications Medication Instructions Recorded Confirmed bupropion HCl 100 mg tablet 100 mg PO BID 07/14/19 07/16/19 docusate sodium 100 mg capsule 100 mg PO BID 07/14/19 07/16/19 (Colace) gabapentin 300 mg capsule 300 - 900 mg PO TID 07/14/19 07/16/19 insulin glargine 100 unit/mL (3 40 unit SUBCUT BEDTIME 07/14/19 07/16/19 mL) subcutaneous pen (Lantus Solostar U-100 Insulin) insulin lispro 100 unit/mL 10 - 30 unit SUBCUT TID 07/14/19 07/16/19 subcutaneous pen (Humalog KwikPen (U-100) Insulin) lisinopril 20 mg tablet 20 mg PO QAM 07/14/19 07/16/19 oxycodone 10 mg tablet 10 mg PO QID 07/14/19 07/16/19 tizanidine 4 mg capsule 6 mg PO SEEINSTR 07/14/19 07/16/19 amlodipine 5 mg tablet 5 mg PO DAILY 07/15/19 07/16/19 Previous Rx's Medication Instructions Recorded diazepam 5 mg tablet 5 mg PO Q6H PRN #20 tab 07/20/19 docusate sodium 100 mg capsule 100 mg PO BID #30 cap 07/20/19 (DOK) hydromorphone 2 mg tablet See Rx Instructions .ROUTE 07/20/19 .COMPLEX PRN #40 tab Allergies Allergy/AdvReac Type Severity Reaction Status Date / Time Penicillins Allergy Severe throat Verified 07/16/19 09:35 swelling Sulfa (Sulfonamide Allergy Severe Rash Verified 07/16/19 09:35 Antibiotics) Review of Systems Constitutional Constitutional: Denies fever(s) Gastrointestinal Gastrointestinal: Reports system reviewed and no additional complaints, except as documented Genitourinary Genitourinary: Reports system reviewed and no additional complaints, except as documented Musculoskeletal Musculoskeletal: Reports system reviewed and no additional complaints, except as documented Integumentary/Breasts Skin/Breast: Reports system reviewed and no additional complaints, except as documented Neurologic Neurologic: Reports system reviewed and no additional complaints, except as documented Hematologic/Lymphatic On Anticoagulants: No Patient History Medical History Asthma Constipation Depression Diabetes Herniated nucleus pulposus, L4-5 left HTN (hypertension) Hx of migraine headaches Lumbar foraminal stenosis Lumbar radiculopathy Surgical History (Updated 07/14/19 @ 11:02 by Afsaneh Campbell RN) History of section (~1996) History of partial hysterectomy (~1998) History of surgery (~2005) Status post epidural steroid injection Social History household members: spouse Smoking Status: Former smoker alcohol intake: never Smoking Status: Former smoker Substance Use Type: does not use Exam Initial Vital Signs Initial Vital Signs: Vital Signs Temperature 97.5 F L 12/02/21 15:55 Pulse Rate 83 12/02/21 15:55 Respiratory Rate 18 12/02/21 15:55 Blood Pressure 194/89 H 12/02/21 15:55 Pulse Oximetry 97 12/02/21 15:55 Const General: cooperative and healthy appearing [facility] Head: normal to inspection and normocephalic Resp Effort & Inspection: normal respiratory effort Cardio Rate: regular rate Back/Spine/Pelvis Other: Tenderness to palpation paraspinal region of the right lumbar spine and over the SI joint in the right buttocks. Neuro General: patient alert, patient awake and moves all extremities Extrem General: normal to inspection Psych Appearance: grossly normal and well kempt Course Orders Ordered: ED Orders 12/02/21 18:50 Urine Culture Stat Urine Microscopic Stat 12/02/21 19:38 XR lumbar spine 2-3V Stat Discontinued Medications Hydromorphone HCl (Hydromorphone 1 Mg Inj) 1 mg IM NOW ONE Stop: 12/02/21 19:10 Last Admin: 12/02/21 19:30 Dose: 1 mg Documented by: MARTI Vital Signs Vital signs: Vital Signs - 8 hr 12/02/21 19:28 12/02/21 20:59 Pulse Rate 99 H 74 Respiratory Rate 18 16 Blood Pressure 194/116 H Pulse Oximetry 99 97 MDM - Back Pain/Injury Lab Data Labs: Lab Results 12/02/21 Range/Units 18:50 Urine RBC 0-1/hpf (0-5/HPF) Urine WBC 5-10/hpf H (0-5/HPF) Ur Squamous Epith Cells 1-5 /hpf (0-5/HPF) Urine Bacteria Few (2-10) H (None) Ur Culture Indicated? Culture not indicate Point of Care Testing Test Results Negative Urine Dip Bedside Urine Glucose Negative Bedside Urine Bilirubin - Negative Bedside Urine Ketone - Negative Urine Specific [place] 1.030 Bedside Urine Occult Blood - Negative Bedside Urine pH 6 Bedside Urine Protein - Negative Bedside Urine Urobilinogen - Negative Bedside Urine Nitrite - Negative Bedside Urine Leukocytes +/- 15 Esterase Imaging Data Lumbar spine x-ray: Radiologist's Impression: [address] [address] XRay Report Signed Patient: Melisa Olmedo MR#: [id number] : 1970 Acct:[id number] Age/Sex: 51 / F Date of Service: 12/02/21 Loc: ED Accession Number: [id number] ?? Procedure: XR lumbar spine 2-3V Ordering Provider: Praveen Blackmon D.O. PROCEDURE:? XR LUMBAR SPINE 2-3V ? INDICATIONS:? lower back pain, difficulty walking/painful ? TECHNIQUE:? 3 views of the lumbar spine were acquired.? ? COMPARISON:? [facility], , XR LUMBAR SPINE 2-3V, 07/16/2019, 13:29.? [facility], , XR LUMBAR SPINE 2 OR 3 VIEWS, 09/13/2019, 15:47. ? FINDINGS:? ? Bones:? 5 [id number] vertebrae are present, with small rudimentary ribs at the T12 level.? Postsurgical changes again seen from posterior fixation at the L5-S1 level.? The metallic hardware is intact.? The alignment is unchanged.? No acute osseous compression fracture.? No suspicious bony lesions.? Mild multilevel degenerative endplate changes. ? Soft tissues:? Overlying bowel gas pattern is normal.? No suspicious soft tissue calcifications.? ? ? IMPRESSION:? Stable postsurgical changes.? No acute osseous abnormality. If the symptoms persist, consider cross sectional imaging such as MRI or CT for further assessment. ? Dictated by: Rico Malone M.D. on 12/02/2021 at 20:27 ? ? Approved by: Rico Malone M.D. on 12/02/2021 at 20:29? MDM Narrative Medical decision making narrative: Patient has acute on chronic right-sided lumbar pain with radiculopathy. Low suspicion for cauda equina. X-ray shows no acute pathology. Patient is currently under the care of pain management. No further workup required in the emergency department. She may require further interventions in the future to include physical therapy or MRI but this will be ordered by her primary provider. 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 The emergency department cannot provide long-term pain control. It is important that you talk with your primary doctor about further evaluation to include potential referral to see physical therapy or orthopedic surgery. Any imaging such as an MRI will need to come from your primary provider. Prescriptions: No Action docusate sodium [Colace] 100 mg Capsule 100 mg PO BID 0RF gabapentin 300 mg Capsule 300 - 900 mg PO TID 0RF Lantus Solostar U-100 Insulin 100 unit/mL (3 mL) Insulin Pen 40 unit SUBCUT BEDTIME 0RF oxycodone 10 mg Tablet 10 mg PO QID 0RF tizanidine 4 mg Capsule 6 mg PO SEEINSTR 0RF Rx Instructions: Take up to 5 times daily lisinopril 20 mg Tablet 20 mg PO QAM 0RF bupropion HCl 100 mg Tablet 100 mg PO BID 0RF insulin lispro [Humalog KwikPen Insulin] 100 unit/mL Insulin Pen 10 - 30 unit SUBCUT TID 0RF Rx Instructions: Sliding scale amlodipine 5 mg Tablet 5 mg PO DAILY 0RF diazepam 5 mg Tablet 5 mg PO Q6H PRN (Reason: Spasms) Qty: 20 0RF docusate sodium [DOK] 100 mg Capsule 100 mg PO BID Qty: 30 0RF hydromorphone 2 mg Tablet See Rx Instructions .ROUTE .COMPLEX PRN (Reason: Pain, Moderate (4-6)) Qty: 40 0RF Rx Instructions: 1-2 PO q4h prn pain Referrals: Chon Carlos MD [Primary Care Provider] -
[2021-12-02 19:11] LABS: Bacteria Urine Few (2-10); RBC Urine 0-1/HPF (0-5/HPF); Squamous Epithelial Cell Urine 1-5 /HPF (0-5/HPF); WBC Urine 5-10/HPF (0-5/HPF)
[2021-12-02 19:28] VITALS: PULSE 99; RESP 18; O2SAT 99
[2021-12-02] MEDS: HYDROMORPHONE 1 MG INJ IM (19:30)
--- NOTE | 2021-12-02 19:38 | DI.RAD.S_ITS ---
PROCEDURE: XR LUMBAR SPINE 2-3V INDICATIONS: lower back pain, difficulty walking/painful TECHNIQUE: 3 views of the lumbar spine were acquired. COMPARISON: [facility], CR, XR LUMBAR SPINE 2-3V, 07/16/2019, 13:29. [facility], CR, XR LUMBAR SPINE 2 OR 3 VIEWS, 09/13/2019, 15:47. FINDINGS: Bones: 5 [id number] vertebrae are present, with small rudimentary ribs at the T12 level. Postsurgical changes again seen from posterior fixation at the L5-S1 level. The metallic hardware is intact. The alignment is unchanged. No acute osseous compression fracture. No suspicious bony lesions. Mild multilevel degenerative endplate changes. Soft tissues: Overlying bowel gas pattern is normal. No suspicious soft tissue calcifications. IMPRESSION: Stable postsurgical changes. No acute osseous abnormality. If the symptoms persist, consider cross sectional imaging such as MRI or CT for further assessment. Dictated by: Rico Malone M.D. on 12/02/2021 at 20:27 Approved by: Rico Malone M.D. on 12/02/2021 at 20:29
[2021-12-02 20:59] VITALS: BP 194/116; PULSE 74; RESP 16; O2SAT 97
== END 2021-12-02 21:00 | disposition home or self-care (01) ==
PROVIDERS: Emergency Provider Emergency Medicine; PCP Family Medicine
DX: M54.50 Low back pain, unspecified (principal)
CPT/HCPCS: 72100; 81003; 81015; 81025; 87086; 96372; 99283; 99284; J1170